=== PATIENT | female | born 1935 | race Caucasian/White ===

== ENCOUNTER 2023-04-08 18:24 | Inpatient (IN) ==
--- NOTE | 2023-04-08 18:44 | ED.PDOC ---
General ED Provider: Dr. CRYSTAL SORIANO MD Chief Complaint: Hypertension Stated Complaint: Headache 87-year-old female presents to the emergency department for evaluation of headache and elevated blood pressure. Patient states she went to bed last night feeling in her normal state of health. She woke up this morning with a mild headache. She states that she noticed a headache after she woke up, it did not wake her up. She states throughout the day it is gotten worse. She does have a history of high blood pressure. She has been taking her medication as prescribed. Denies feeling nauseated. States she feels dizzy from time to time but not any worse with this headache. No vision changes. Time Seen by Provider: 04/08/23 18:41 Mode of Arrival: Walk-In Information Source: Patient and Family Exam Limitations: Dementia Primary Care Provider: ERICA MICHAEL MD Nursing and Triage Documentation Reviewed and Agree: Yes Review of Systems Review Of Systems Constitutional: Reports No symptoms All Other Systems: Reviewed and Negative PFSH Family History Mother Lung cancer Social History Smoking and tobacco status: Never smoker Alcohol intake: never Substance use type: does not use Household members: none Housing: house Marital status: W / Lives independently: Yes Number of children: 5 Current occupational status: retired Current gender identity: female Seatbelt use: always Water heater temperature set < 120 degrees: Yes Working smoke detector in home: Yes Fire extinguisher in home: Yes Physical Exam Physical Exam Appearance: Reports Well-appearing Ill-appearing: None Pain Distress: Mild Eyes: Reports EOMI ENT: Reports Oropharynx normal Neck: Supple Respiratory: Reports Airway patent and Breath sounds clear Cardiovascular: Reports RRR and Pulses normal GI/: Reports Soft and Nontender Musculoskeletal: Reports Normal strength and ROM intact Skin: Reports Warm and Dry Neurological: Reports Cranial nerves intact, Alert and Oriented Psychiatric: Reports Affect appropriate Critical Care Note Critical Care Note Total Critical Care Time (mins): 30 Course Course 04/08/23 19:13 04/08/23 19:13 Orders, Labs, Meds: Lab Review 04/08/23 04/08/23 04/08/23 19:02 19:13 20:55 WBC 10.35 H RBC 4.90 Hgb 14.6 Hct 42.6 MCV 86.9 MCH 29.8 MCHC 34.3 RDW Coeff of [place] 12.7 Plt Count 248 Immature Gran % (Auto) 0.3 Neut % (Auto) 63.9 Lymph % (Auto) 24.6 [place] % (Auto) 7.2 Eos % (Auto) 3.6 Baso % (Auto) 0.4 Neut # (Auto) 6.6 Lymph # (Auto) 2.6 [place] # (Auto) 0.8 Eos # (Auto) 0.4 Baso # (Auto) 0.0 Immature Gran # (Auto) 0.0 Sodium 127.7 L Potassium 3.70 Chloride 93.4 L Carbon Dioxide 23.4 Anion Gap 14.60 BUN 7.9 Creatinine 0.43 L Estimated GFR (MDRD) 139.00 BUN/Creatinine Ratio 18.37 Glucose 216.3 H Calcium 9.65 Urine Color Yellow Urine Clarity Clear Urine pH 8.0 Ur Specific [place] 1.015 Urine Protein Negative Urine Glucose (UA) 2+ H Urine Ketones Trace H Urine Blood 2+ H Urine Nitrite Negative Urine Bilirubin Negative Urine Urobilinogen 0.2 Ur Leukocyte Esterase Trace H Urine Microscopic RBC 20-30 Urine Microscopic WBC 10-20 Ur Squamous Epith Cells 5-10 Ur Renal Epithelial Cell 0-2 Urine Bacteria Trace SARS CoV-2 RNA Rapid TOM Negative Orders Category Date Time Status ED IV/MEDIPORT/POWERPORT .ONCE EMERGENCY 04/08/23 19:38 Active BMP [BASIC METABOLIC PANEL] Stat LAB 04/08/23 19:13 Completed CBC W/ AUTO DIFF Stat LAB 04/08/23 19:13 Completed SARS COV-2 RNA RAPID TOM Stat LAB 04/08/23 19:02 Completed UA [URINALYSIS C & S IF INDICATED] Stat LAB 04/08/23 20:55 Completed URINE CULTURE Stat LAB 04/08/23 20:55 Received 0.9 % Sodium Chloride [Saline Flush] Meds 04/08/23 19:37 Active 1 syr IVF PRN PRN Acetaminophen [Tylenol] Meds 04/08/23 19:41 Discontinued 650 mg PO ONCE ONE Ibuprofen [Motrin] Meds 04/08/23 19:41 Discontinued 400 mg PO ONCE STA Lisinopril [Zestril] Meds 04/08/23 21:32 Discontinued 10 mg PO ONCE ONE Metoprolol Tartrate [Lopressor] Meds 04/08/23 20:08 Discontinued 2.5 mg IVP ONCE ONE Nitrofurantoin Monohyd/M-Cryst [Macrobid] Meds 04/08/23 21:43 Discontinued 100 [address] PO ONCE ONE CT HEAD W/O CONTRAST Stat RADS 04/08/23 18:30 Completed Medications Generic Name Dose Route Start Last Admin Trade Name Freq PRN Reason Stop Dose Admin Sodium Chloride 1 syr 04/08/23 19:37 0.9% Sodium Chloride 10 Ml Disp.Syrin IVF PRN PRN To flush IV Discontinued Medications Generic Name Dose Route Start Last Admin Trade Name Freq PRN Reason Stop Dose Admin Acetaminophen 650 mg 04/08/23 19:41 04/08/23 20:02 Acetaminophen 325 Mg Tablet PO 04/08/23 19:42 650 mg ONCE ONE Administration Ibuprofen 400 mg 04/08/23 19:41 04/08/23 20:02 Ibuprofen 400 Mg Tablet PO 04/08/23 19:42 400 mg ONCE STA Administration Lisinopril 10 mg 04/08/23 21:32 04/08/23 21:38 Lisinopril 10 Mg Tablet PO 04/08/23 21:33 10 mg ONCE ONE Administration Metoprolol Tartrate 2.5 mg 04/08/23 20:08 04/08/23 20:59 Metoprolol Tartrate 5 Mg/5 Ml Vial IVP 04/08/23 20:09 2.5 mg ONCE ONE Administration Nitrofurantoin Macrocrystals 100 mg 04/08/23 21:43 Nitrofurantoin Monohyd/M-Cryst 100 Mg Capsule PO 04/08/23 21:44 ONCE ONE Patient with elevated blood pressure while in the emergency department. Patient was given a dose of 2.5 mg of Lopressor IV. No real improvement in her blood pressure. Patient reassessed and does not have any real change in her headache. She does have possible urinary tract infection. Remainder of her laboratory testing is unremarkable. Uncertain if her headache is causing her blood pressure, her blood pressure is causing her headache or if the urinary tract infection is contributing in someway. Patient given an oral dose of her blood pressure medication and an antibiotic. Discussed discharge home with outpatient management versus admission. Patient feels more comfortable with admission because her primary doctor does not hold appointments tomorrow and it is then the weekend. 9:47 PM Case discussed with patient's primary provider, Dr. Michael. He is comfortable with admission, would prefer hospitalist team to the admission. 9:49 PM Case discussed with hospitalist team. They will accept admission. Patient will be given her 8 PM medications including melatonin, temazepam, Eliquis, sotalol, metformin. She is also been given oral lisinopril in the emergency department. Vital Signs: Temp Pulse Resp BP Pulse Ox 04/08/23 21:31 76 16 178/80 H 94 L 04/08/23 21:23 76 16 176/78 H 94 L 04/08/23 21:15 70 16 179/81 H 95 04/08/23 21:08 78 16 182/81 H 94 L 04/08/23 21:00 74 16 187/87 H 95 04/08/23 20:30 76 16 181/84 H 97 04/08/23 20:05 80 16 184/81 H 97 04/08/23 19:28 72 16 170/73 H 96 04/08/23 18:34 98.1 F 72 16 191/76 H 97 Discharge Plan Discharge Patient Disposition: PLACED OBSERVATION Discharge Problem: Acute UTI Headache Qualifiers: Headache type: unspecified Hypertension Qualifiers: Hypertension type: unspecified Qualified Code(s): I10 - Essential (primary) hypertension Prescriptions: No Action aspirin 81 mg tablet,delayed release (DR/EC) 81 mg PO QDAY Qty: 90 1RF ibandronate 150 mg tablet 150 mg PO QMONTH Qty: 6 1RF metformin 500 mg tablet 500 mg PO BID Qty: 180 1RF Eliquis 5 mg tablet See Rx Instructions .ROUTE .COMPLEX Qty: 180 1RF Dose Instruction: Take 1 tablet by mouth twice daily Rx Instructions: Take 1 tablet by mouth twice daily fluticasone propionate [24 Hour Allergy Relief] 50 mcg/actuation spray,suspension 2 spray intranasal DAILY Rx Instructions: administer into each nostril polyethylene glycol 3350 17 gram powder in packet 17 g PO QPM atorvastatin 20 mg tablet 10 mg PO QDAY temazepam 15 mg capsule 15 mg PO QHS sotalol 80 mg tablet 80 mg PO BID Qty: 180 1RF furosemide [Lasix] 20 mg tablet 20 mg PO QAM Qty: 90 1RF amlodipine 10 mg tablet 10 mg PO QDAY Qty: 90 1RF lisinopril 2.5 mg tablet 2.5 mg PO QDAY Qty: 90 1RF Did you review [place] [employer] for ALL controlled substances?: Not Applicable ED Provider: CRYSTAL SORIANO Physician Progress Note: []
[2023-04-08 19:19] LABS: BASOPHILS % (AUTO) 0.4 % (0.0-3.0); EOSINOPHILS # (AUTO) 0.4 K/ul (0.0-0.7); EOSINOPHILS % (AUTO) 3.6 % (0.0-7.0); HEMATOCRIT 42.6 % (37.0-47.0); HEMOGLOBIN 14.6 g/dl (12.0-16.0); IMMATURE GRANULOCYTE % (AUTO) 0.3 % (0.0-5.0); LYMPHOCYTES # (AUTO) 2.6 K/uL (0.60-3.4); LYMPHOCYTES % (AUTO) 24.6 (10.0-50.0); MEAN CORPUSCULAR HEMOGLOBIN 29.8 pg (27.0-31.0); MEAN CORPUSCULAR HGB CONC 34.3 (31.8-35.4); MEAN CORPUSCULAR VOLUME 86.9 fl (81.0-99.0); MONOCYTES # (AUTO) 0.8 K/uL (0.4-2.0); MONOCYTES % (AUTO) 7.2 (0-10); NEUTROPHILS # (AUTO) 6.6 K/ul (2.0-6.9); NEUTROPHILS % (AUTO) 63.9 % (42.2-75.2); PLATELET COUNT 248 10^3/uL (140-440); RDW COEFFICIENT OF VARIATION 12.7 % (11.6-14.8); WHITE BLOOD COUNT 10.35 K/ul (4.6-10.2)
--- NOTE | 2023-04-08 19:19 | CT ---
EXAM: CT SCAN OF THE HEAD WITHOUT CONTRAST HISTORY: Headaches, hypertension TECHNIQUE: Imaging of the head was performed without contrast. 5 mm thin axial images and coronal a nd sagittal images were obtained. FINDINGS: The rodriguez-white interface appears normal. Low density changes are seen within the supraten torial white matter. No acute hemorrhages are seen. There is no mass effect. The basal cisterns ar e patent. The paranasal sinuses and mastoid air cells are clear. IMPRESSION: No acute intracranial abnormalities are seen. Chronic small vessel ischemic changes seen within the supratentorial white matter. All CT scans are performed using dose optimization techniques as appropriate to the performed exam an d include at least one of the following: Automated exposure control, adjustment of the mA and/or kV according t o size, and the use of iterative reconstruction technique.
[2023-04-08 19:33] LABS: BLOOD UREA NITROGEN 7.9 mg/dL (7-17); CALCIUM 9.65 mg/dL (8.4-10.2); CARBON DIOXIDE 23.4 mmol/L (22-30.0); CHLORIDE 93.4 mmol/L (98-107); CREATININE 0.43 mg/dL (0.60-1.30); GLUCOSE 216.3 mg/dL (74-106); POTASSIUM 3.7 mmol/L (3.5-5.1); SODIUM 127.7 mmol/L (134.5-145)
[2023-04-08] MEDS ORDERED: TYLENOL PO ONE (19:41)
[2023-04-08] MEDS ORDERED: MOTRIN PO STA (19:41)
[2023-04-08 19:54] LABS: SARS COV-2 RNA RAPID NAAT NEGATIVE (NEGATIVE)
[2023-04-08] MEDS ORDERED: LOPRESSOR IVP ONE (20:08)
[2023-04-08 21:07] LABS: BILIRUBIN,URINE Negative (NEGATIVE); CLARITY,URINE Clear (CLEAR); COLOR,URINE Yellow (YELLOW); GLUCOSE, URINE (UA) 2+ (NEGATIVE); KETONES,URINE Trace (NEGATIVE); LEUKOCYTE ESTERASE ,URINE Trace (NEGATIVE); NITRITE,URINE Negative (NEGATIVE); PROTEIN,URINE Negative (NEGATIVE); URINE, BLOOD 2+ (NEGATIVE); UROBILINOGEN,URINE 0.2 (0.2)
[2023-04-08 21:26] LABS: BACTERIA,URINE TRACE (NOT PRESENT); RENAL EPITHELIAL CELLS,URINE 0-2 (NOT PRESENT); URINE RBC, MICROSCOPIC 20-30 (0-2)
[2023-04-08] MEDS ORDERED: ZESTRIL PO ONE (21:32)
[2023-04-08] MEDS ORDERED: MACROBID PO ONE (21:43)
[2023-04-08] MEDS ORDERED: RESTORIL PO ONE (21:51)
[2023-04-08] MEDS ORDERED: ELIQUIS PO ONE (21:51)
[2023-04-08] MEDS ORDERED: BETAPACE PO ONE (21:51)
[2023-04-08] MEDS ORDERED: MELATONIN PO PRN (21:51)
[2023-04-08] MEDS ORDERED: GLUCOPHAGE PO ONE (21:52)
[2023-04-08 23:30] VITALS: BMI 23.6
[2023-04-09] MEDS ORDERED: HYDRALAZINE HCL IVP PRN (00:09)
[2023-04-09] MEDS ORDERED: TORADOL IVP STA (00:09)
[2023-04-09] MEDS: TYLENOL PO PRN (06:02)
[2023-04-09 06:36] LABS: BASOPHILS % (AUTO) 0.3 % (0.0-3.0); EOSINOPHILS # (AUTO) 0.1 K/ul (0.0-0.7); EOSINOPHILS % (AUTO) 1.3 % (0.0-7.0); HEMATOCRIT 39.1 % (37.0-47.0); HEMOGLOBIN 13.3 g/dl (12.0-16.0); IMMATURE GRANULOCYTE % (AUTO) 0.3 % (0.0-5.0); LYMPHOCYTES # (AUTO) 2.7 K/uL (0.60-3.4); MEAN CORPUSCULAR HEMOGLOBIN 29.8 pg (27.0-31.0); MEAN CORPUSCULAR VOLUME 87.7 fl (81.0-99.0); MONOCYTES # (AUTO) 0.8 K/uL (0.4-2.0); NEUTROPHILS # (AUTO) 6.4 K/ul (2.0-6.9); NEUTROPHILS % (AUTO) 63.1 % (42.2-75.2); PLATELET COUNT 226 10^3/uL (140-440); RDW COEFFICIENT OF VARIATION 12.5 % (11.6-14.8); RED BLOOD COUNT 4.46 10^6/ul (4.20-5.40); WHITE BLOOD COUNT 10.06 K/ul (4.6-10.2)
[2023-04-09 06:50] LABS: ALANINE AMINOTRANSFERASE 19.9 U/L (0-35); ALBUMIN 4.09 g/dL (3.5-5.0); ALKALINE PHOSPHATASE 71.9 U/L (53-141); ASPARTATE AMINO TRANSFERASE 27.2 U/L (14-36); BILIRUBIN,TOTAL 0.61 mg/dL (0.2-1.3); CALCIUM 9.19 mg/dL (8.4-10.2); CARBON DIOXIDE 19.1 mmol/L (22-30.0); CHLORIDE 94.4 mmol/L (98-107); CREATININE 0.35 mg/dL (0.60-1.30); GLUCOSE 109.9 mg/dL (74-106); POTASSIUM 3.51 mmol/L (3.5-5.1); SODIUM 124.7 mmol/L (134.5-145); TOTAL PROTEIN 6.87 g/dL (6.3-8.2)
[2023-04-09] MEDS ORDERED: SODIUM CHLORIDE 1,000 ML IV SCH (07:30)
[2023-04-09] MEDS: MACROBID PO SCH ×2 (08:38→20:46)
[2023-04-09] MEDS: NORVASC PO SCH (08:38)
[2023-04-09] MEDS: LIPITOR PO SCH (08:39)
[2023-04-09] MEDS: BETAPACE PO SCH (08:39)
[2023-04-09] MEDS ORDERED: ASPIRIN CHEWABLE PO SCH (09:00)
[2023-04-09] MEDS ORDERED: LASIX TAB PO SCH (09:00)
[2023-04-09] MEDS ORDERED: GLUCOPHAGE PO SCH (09:00)
[2023-04-09] MEDS ORDERED: ZESTRIL PO SCH ×2 (09:00→10:00)
[2023-04-09] MEDS ORDERED: MACROBID PO SCH (09:00)
[2023-04-09] MEDS ORDERED: TORADOL IVP PRN (09:37)
[2023-04-09] MEDS: ZESTRIL PO SCH ×2 (11:18→20:46)
[2023-04-09] MEDS: MICRO-K CAP PO SCH ×2 (11:18→17:16)
[2023-04-09] MEDS: POTASSIUM CHLORIDE 40 MEQ VIAL-ADDITIVE ONLY 30 MEQ in SODIUM CHLORIDE 1,000 ML IV SCH (11:19)
--- NOTE | 2023-04-09 11:33 | PCM ---
Date of Service Date Seen by Provider: 04/09/23 Time Seen by Provider: 09:00 Admit Day/Time Admission Date: 04/09/23 Admission Time: 12:00 Reason for Admission Chief Complaint: ACUTE UTI, HTN Hospital Provider Hospital Provider: ERICA CORONA MD, [facility] Primary Care Physician Primary Care Physician: ERICA CORONA MD History of Present Illness History of Present Illness: 87 yo female presented to the ER with headache and hypertension. Patient states that her headache started yesterday afternoon and persisted. Describes the pain as a throbbing. Tylenol and ibuprofen do not make it better. Has not had any recent changes in medication. No recent illness. Reports her BP is normally controlled and has not had any dosage changes. Patient was found to have low sodium in ER as well as UTI. She was started on macrobid and given her home BP medications that later improved her BP. Still has complaints of headache. Denies any fever, chills, N/V/D, chest pain, SOB, or abdominal pain. States she does have burning on urination occasionally, but not consistently. Case Discussed With Case Discussed With: Patient's case was discussed with the ER Physicians, Dr. 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 (ICD-10) Hypertension I10 - Essential (primary) hypertension (ICD-10) Family History Mother Lung cancer Social History Smoking and tobacco status: Never smoker Alcohol intake: never Substance use type: does not use Household members: none Housing: house Marital status: W / Lives independently: Yes Number of children: 5 Current occupational status: retired Current gender identity: female Seatbelt use: always Water heater temperature set < 120 degrees: Yes Working smoke detector in home: Yes Fire extinguisher in home: Yes Allergies Allergies Allergy/AdvReac Type Severity Reaction Status Date / Time namenda AdvReac Dizziness Uncoded 04/08/23 18:49 Current Medications Home Medications aspirin 81 mg tablet,delayed release 81 mg PO QDAY #90 tabs 12/21/22 [Rx Confirmed 04/08/23 Last Taken Unknown] ibandronate 150 mg tablet 150 mg PO QMONTH #6 tabs 12/21/22 [Rx Confirmed 04/08/23 Last Taken Unknown] metformin 500 mg tablet 500 mg PO BID #180 tabs 12/21/22 [Rx Confirmed 04/08/23 Last Taken Unknown] apixaban 5 mg tablet (Eliquis) See Rx Instructions .Route .COMPLEX #180 tabs 02/22/23 [Rx Confirmed 04/08/23 Last Taken Unknown] amlodipine 10 mg tablet 10 mg PO QDAY #90 tabs 03/03/23 [Rx Confirmed 04/08/23 Last Taken Unknown] furosemide 20 mg tablet (Lasix) 20 mg PO QAM #90 tabs 03/03/23 [Rx Confirmed 04/08/23 Last Taken Unknown] lisinopril 2.5 mg tablet 2.5 mg PO QDAY #90 tabs 03/03/23 [Rx Confirmed 04/08/23 Last Taken Unknown] sotalol 80 mg tablet 80 mg PO BID #180 tabs 03/03/23 [Rx Confirmed 04/08/23 Last Taken Unknown] atorvastatin 20 mg tablet 10 mg PO QDAY 04/08/23 [History Confirmed 04/08/23 Last Taken Unknown] fluticasone propionate 50 mcg/actuation nasal spray,suspension (24 Hour Allergy Relief) 2 spray intranasal DAILY 04/08/23 [History Confirmed 04/08/23 Last Taken Unknown] polyethylene glycol 3350 17 gram oral powder packet 17 g PO QPM 04/08/23 [History Confirmed 04/08/23 Last Taken Unknown] temazepam 15 mg capsule 15 mg PO QHS sleep 04/08/23 [History Confirmed 04/08/23 Last Taken Unknown] Home Acetaminophen (Acetaminophen 325 Mg Tablet) 650 mg PO Q4H PRN PRN Reason: Pain Last Admin: 04/09/23 06:02 Dose: 650 mg Amlodipine Besylate (Amlodipine Besylate 5 Mg Tablet) 10 mg PO QAM [facility] Last Admin: 04/09/23 08:38 Dose: 10 mg Aspirin (Aspirin 81 Mg Tab.Chew) 81 mg PO DAILYWM2 [place] Atorvastatin Calcium (Atorvastatin Calcium 10 Mg Tablet) 10 mg PO QAM [facility] Last Admin: 04/09/23 08:39 Dose: 10 mg Furosemide (Furosemide 20 Mg Tablet) 10 mg PO QDAC2 [facility] Hydralazine HCl (Hydralazine Hcl 20 Mg/Ml Sdv) 10 mg IVP Q6H PRN PRN Reason: Hypertension Last Admin: 04/09/23 00:47 Dose: 10 mg Potassium Chloride 30 meq/ (Sodium Chloride) 1,015 mls @ 75 mls/hr IV .[id number] [facility] Last Admin: 04/09/23 11:19 Dose: 75 mls/hr Ketorolac Tromethamine (Ketorolac Tromethamine 30 Mg/Ml Vial) 30 mg IVP Q6H PRN PRN Reason: headache Stop: 04/13/23 09:37 Last Admin: 04/09/23 09:52 Dose: 30 mg Lisinopril (Lisinopril 10 Mg Tablet) 10 mg PO BID [facility] Last Admin: 04/09/23 11:18 Dose: 10 mg Melatonin (Melatonin 3 Mg Tablet) 3 mg PO BEDTIME PRN PRN Reason: Insomnia Metformin HCl (Metformin Hcl 500 Mg Tablet) 500 mg PO DAILYWM2 [facility] Nitrofurantoin Macrocrystals (Nitrofurantoin Monohyd/M-Cryst 100 Mg Capsule) 100 mg PO BID [facility] Stop: 04/12/23 08:59 Last Admin: 04/09/23 08:38 Dose: 100 mg Potassium Chloride (Potassium Chloride 10 Meq Capsule.Er) 10 meq PO BIDWM2 [facility] Last Admin: 04/09/23 11:18 Dose: 10 meq Sodium Chloride (0.9% Sodium Chloride 10 Ml Disp.Syrin) 1 syr IVF PRN PRN PRN Reason: To flush IV Last Admin: 04/09/23 06:00 Dose: 1 syr Sotalol HCl (Sotalol Hcl 80 Mg Tablet) 80 mg [place] Last Admin: 04/09/23 08:39 Dose: 80 mg Discontinued Medications Acetaminophen (Acetaminophen 325 Mg Tablet) 650 mg PO ONCE ONE Stop: 04/08/23 19:42 Last Admin: 04/08/23 20:02 Dose: 650 mg Apixaban (Apixaban 5 Mg Tab) 5 mg PO ONCE ONE Stop: 04/08/23 21:52 Last Admin: 04/08/23 22:12 Dose: 5 mg Aspirin (Aspirin 81 Mg Tab.Chew) 81 mg PO [facility] Last Admin: 04/09/23 08:38 Dose: 81 mg Furosemide (Furosemide 20 Mg Tablet) 10 mg [place] Last Admin: 04/09/23 08:39 Dose: 10 mg Sodium Chloride (Sodium Chloride) 1,000 mls @ 100 mls/hr IV .Q10H [facility] Last Infusion: 04/09/23 11:21 Dose: 0 mls/hr Ibuprofen (Ibuprofen 400 Mg Tablet) 400 mg PO ONCE STA Stop: 04/08/23 19:42 Last Admin: 04/08/23 20:02 Dose: 400 mg Ketorolac Tromethamine (Ketorolac Tromethamine 30 Mg/Ml Vial) 30 mg IVP ONCE STA Stop: 04/09/23 00:10 Last Admin: 04/09/23 00:47 Dose: 30 mg Lisinopril (Lisinopril 10 Mg Tablet) 10 mg PO ONCE ONE Stop: 04/08/23 21:33 Last Admin: 04/08/23 21:38 Dose: 10 mg Lisinopril (Lisinopril 5 Mg Tablet) 2.5 mg PO [facility] Last Admin: 04/09/23 08:39 Dose: 2.5 mg Lisinopril (Lisinopril 5 Mg Tablet) 5 mg PO DAILY [facility] Last Admin: 04/09/23 09:52 Dose: 5 mg Metformin HCl (Metformin Hcl 500 Mg Tablet) 500 mg PO ONCE ONE Stop: 04/08/23 21:53 Last Admin: 04/08/23 22:12 Dose: 500 mg Metformin HCl (Metformin Hcl 500 Mg Tablet) 500 mg PO [facility] Last Admin: 04/09/23 08:39 Dose: 500 mg Metoprolol Tartrate (Metoprolol Tartrate 5 Mg/5 Ml Vial) 2.5 mg IVP ONCE ONE Stop: 04/08/23 20:09 Last Admin: 04/08/23 20:59 Dose: 2.5 mg Nitrofurantoin Macrocrystals (Nitrofurantoin Monohyd/M-Cryst 100 Mg Capsule) 100 mg PO ONCE ONE Stop: 04/08/23 21:44 Last Admin: 04/08/23 22:12 Dose: 100 mg Nitrofurantoin Macrocrystals (Nitrofurantoin Monohyd/M-Cryst 100 Mg Capsule) 100 mg PO [facility] Stop: 04/12/23 08:59 Sotalol HCl (Sotalol Hcl 80 Mg Tablet) 80 mg PO ONCE ONE Stop: 04/08/23 21:52 Last Admin: 04/08/23 22:12 Dose: 80 mg Temazepam (Temazepam 15 Mg Capsule) 15 mg PO ONCE ONE Stop: 04/08/23 21:52 Last Admin: 04/08/23 22:12 Dose: 15 mg Review of Systems Constitutional: Reports No symptoms Head: Reports Normocephalic Eyes: Reports No symptoms Ears: Reports No symptoms Nose: Reports No symptoms Mouth: Reports No symptoms Throat: Reports No symptoms Cardiovascular: Reports No symptoms Respiratory: Reports No symptoms Gastrointestinal: Reports No symptoms Genitourinary: Reports No Symptoms Musculoskeletal: Reports No symptoms Endocrine: Reports No symptoms Hematology: Reports No symptoms Immunology: Reports No symptoms Neurological: Reports Headache Psychiatric: Reports No symptoms Physical examination Most Recent Vital Signs: Most Recent Vital Signs Temperature 97.5 F L 04/09/23 09:45 Temperature Source Tympanic 04/09/23 09:45 Temperature Source Infrared 04/08/23 18:34 Pulse Rate 72 04/09/23 09:45 Respiratory Rate 18 04/09/23 09:45 Blood Pressure 156/64 H 04/09/23 09:45 Blood Pressure Mean 94 04/09/23 09:45 Blood Pressure Right Arm 187/84 04/08/23 22:42 Blood Pressure Location Right Arm 04/09/23 09:45 Blood Pressure Position Supine 04/09/23 09:45 O2 Sat by Pulse Oximetry 94 L 04/09/23 09:45 Oxygen Delivery Method Room Air 04/09/23 10:46 Height 5 ft 1 in 04/08/23 22:42 Weight 125 lb 5 oz 04/08/23 22:42 Telemetry Type Remote Telemetry 04/09/23 07:00 Telemetry Monitoring Continues 04/09/23 07:00 Telemetry Heart Rate 63 04/09/23 07:00 EKG MD Interval 0.22 H 04/09/23 07:00 EKG QRS Interval 0.06 04/09/23 07:00 Telemetry Strip Reading A PACED WITH 1ST DEGREE AVB 04/09/23 07:00 Appearance: Positive No Apparent Distress and Alert and Oriented x3 Skin: Positive Warm and Good Turgor HEENT: Positive Normocephalic and PERRLA Neck: Positive Supple and Midline Trachea Chest/Lungs: Positive Symmetrical With Equal Breath Sounds, Clear to Au scultation Bilaterally and Good Air Movement all 4 Lung [place] Heart: Positive RRR and Pulses Normal GI/: Positive Soft, Nontender, Bowel Sounds Normal and No Distention Musculoskeletal: Positive Not Examined Extremities: Positive Intact Peripheral Pulses, Stable Joints Without Laxity and Good ROM in All Joints Neurological: Positive Sensation Intact, Motor intact, Reflexes Intact, Alert, Oriented and Muscle Strength 5/5 in Upper and Lower Extremities Bilaterally Labs This Visit Labs This Visit: Labs This Visit 04/08/23 04/08/23 04/08/23 19:02 19:13 20:55 WBC 10.35 H RBC 4.90 Hgb 14.6 Hct 42.6 MCV 86.9 MCH 29.8 MCHC 34.3 RDW Coeff of [place] 12.7 Plt Count 248 Immature Gran % (Auto) 0.3 Neut % (Auto) 63.9 Lymph % (Auto) 24.6 [place] % (Auto) 7.2 Eos % (Auto) 3.6 Baso % (Auto) 0.4 Neut # (Auto) 6.6 Lymph # (Auto) 2.6 [place] # (Auto) 0.8 Eos # (Auto) 0.4 Baso # (Auto) 0.0 Immature Gran # (Auto) 0.0 Sodium 127.7 L Potassium 3.70 Chloride 93.4 L Carbon Dioxide 23.4 Anion Gap 14.60 BUN 7.9 Creatinine 0.43 L Estimated GFR (MDRD) 139.00 BUN/Creatinine Ratio 18.37 Glucose 216.3 H Calcium 9.65 Total Bilirubin AST ALT Alkaline Phosphatase Total Protein Albumin Globulin Albumin/Globulin Ratio Urine Color Yellow Urine Clarity Clear Urine pH 8.0 Ur Specific [place] 1.015 Urine Protein Negative Urine Glucose (UA) 2+ H Urine Ketones Trace H Urine Blood 2+ H Urine Nitrite Negative Urine Bilirubin Negative Urine Urobilinogen 0.2 Ur Leukocyte Esterase Trace H Urine Microscopic RBC 20-30 Urine Microscopic WBC 10-20 Ur Squamous Epith Cells 5-10 Ur Renal Epithelial Cell 0-2 Urine Bacteria Trace SARS CoV-2 RNA Rapid TOM Negative 04/09/23 06:27 WBC 10.06 RBC 4.46 Hgb 13.3 Hct 39.1 MCV 87.7 MCH 29.8 MCHC 34.0 RDW Coeff of [place] 12.5 Plt Count 226 Immature Gran % (Auto) 0.3 Neut % (Auto) 63.1 Lymph % (Auto) 27.0 [place] % (Auto) 8.0 Eos % (Auto) 1.3 Baso % (Auto) 0.3 Neut # (Auto) 6.4 Lymph # (Auto) 2.7 [place] # (Auto) 0.8 Eos # (Auto) 0.1 Baso # (Auto) 0.0 Immature Gran # (Auto) 0.0 Sodium 124.7 L Potassium 3.51 Chloride 94.4 L Carbon Dioxide 19.1 L Anion Gap 14.71 BUN 8.0 Creatinine 0.35 L Estimated GFR (MDRD) 176.00 BUN/Creatinine Ratio 22.85 Glucose 109.9 H D Calcium 9.19 Total Bilirubin 0.61 AST 27.2 ALT 19.9 Alkaline Phosphatase 71.9 Total Protein 6.87 Albumin 4.09 Globulin 2.78 Albumin/Globulin Ratio 1.47 Urine Color Urine Clarity Urine pH Ur Specific [place] Urine Protein Urine Glucose (UA) Urine Ketones Urine Blood Urine Nitrite Urine Bilirubin Urine Urobilinogen Ur Leukocyte Esterase Urine Microscopic RBC Urine Microscopic WBC Ur Squamous Epith Cells Ur Renal Epithelial Cell Urine Bacteria SARS CoV-2 RNA Rapid TOM Microbiology This Visit 04/08/23 20:55 Urine,Random Urine Culture - Preliminary Imaging Imaging: EXAM: CT SCAN OF THE HEAD WITHOUT CONTRAST HISTORY: Headaches, hypertension TECHNIQUE: Imaging of the head was performed without contrast. 5 mm thin axial images and coronal and sagittal images were obtained. FINDINGS: The rodriguez-white interface appears normal. Low density changes are seen within the supratentorial white matter. No acute hemorrhages are seen. There is no mass effect. The basal cisterns are patent. The paranasal sinuses and mastoid air cells are clear. IMPRESSION: No acute intracranial abnormalities are seen. Chronic small vessel ischemic changes seen within the supratentorial white matter. Review Statement Review Statement: I have independently reviewed and interpreted the labs/EKGs/imaging that were ordered by the ER provider. I have reviewed all outside records that are available currently in our EMR including imaging/notes/labs from previous visits. Plan Plan: 1. Acute Hyponatremia - started on NS@100mL/hr, checking osmolalities 2. UTI - urine culture showing growth of gram negative rods, started on macrobid BID 3. Hypertension - uncontrolled, hydralazine ordered prn, increased lisinopril dose to 5 mg, continued all other BP medications will adjust as needed 4. Headache - likely related to high BP, toradol ordered prn, see above for BP management DVT Prophylaxis: Eliquis Dr. Modesta Corona assumed care of this patient at approximately 10:15 am. Time Spent: Greater than 80 minutes spent with patient, 50% of the time spent with this patient was devoted to counseling and coordination of care. [facility] minutes spent discussing advance care planning. Disposition: Admit to: Med/Surg Observation Discussed Plan of Care with Dr. Danny Corona. Medications Medication Orders: Medications Ordered Category Date Time Status 0.9 % Sodium Chloride [Saline Flush] Meds 04/08/23 19:37 Active 1 syr IVF PRN PRN Acetaminophen [Tylenol] Meds 04/09/23 05:50 Active 650 mg PO Q4H PRN Amlodipine Besylate [Norvasc] Meds 04/09/23 09:00 Active 10 mg PO QAM Aspirin [Aspirin Chewable] Meds 04/10/23 07:30 Active 81 mg PO DAILYWM2 Atorvastatin Calcium [Lipitor] Meds 04/09/23 09:00 Active 10 mg PO QAM Furosemide [Lasix Tab] Meds 04/10/23 06:00 Active 10 mg PO QDAC2 Hydralazine HCl Meds 04/09/23 00:09 Active 10 mg IVP Q6H PRN Ketorolac Tromethamine [Toradol] Meds 04/09/23 09:37 Active 30 mg IVP Q6H PRN Lisinopril [Zestril] Meds 04/09/23 10:45 Active 10 mg PO BID Melatonin Meds 04/08/23 21:51 Active 3 mg PO BEDTIME PRN Metformin HCl [Glucophage] Meds 04/10/23 07:30 Active 500 mg PO DAILYWM2 Nitrofurantoin Monohyd/M-Cryst [Macrobid] Meds 04/09/23 09:00 Active 100 mg PO BID Potassium Chloride [Micro-K Cap] Meds 04/09/23 11:00 Active 10 meq PO BIDWM2 Sodium Chloride 0.9% [Sodium Chloride] 1,000 ml Meds 04/09/23 11:00 Active Potassium Chloride Additive [Potassium Chloride 40 Meq Vial-Additive Only] 30 meq IV 75 mls/hr Sodium Chloride 0.9% [Sodium Chloride] 1,000 ml Meds 04/09/23 07:30 Stop Req IV 100 mls/hr Sotalol HCl [Betapace] Meds 04/09/23 09:00 Active 80 mg PO QAM
--- NOTE | 2023-04-09 14:00 | RS.PTINEVL ---
Subjective Patient information Date of Evaluation: 04/09/23 Date of Arrival on Unit: 04/08/23 Admitted From:: Emergency Dept Diagnosis: HTN Usual Living Arrangement: Alone Medical History: Dementia and Diabetes Medical History Comments:: osteoporosis,afib Surgical History: Hysterectomy Surgical History Comments:: thyroid surgery, pacemaker Medications: see chart Subjective Information/ Patient Comments:: pt states that her headache is finally gone. Reports she is tired from not getting much sleep last night. 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 Family helps when needed. Current Level of Function: Partially Dependent Current Equipment Used at Home: Rolling walker Interventions Objective Patient Orientation: Person, Place and Situation Current Interventions: IV's and Telemetry Observation: pt is NEZ PERCE. Increased thoracic kyphosis Range of Motion ROM Right Upper Extremity AROM: WFL's Left Upper Extremity AROM: WFL's Right Lower Extremity AROM: WFL's Left Lower Extremity AROM: WFL's Muscle Strength Muscle Strength Right Upper Extremity: Mild Weakness (grossly 4/5 ) Left Upper Extremity: Mild Weakness (grossly 4/5 ) Right Lower Extremity: Mild Weakness (hip flex 4-/5, knee flex/ext 4/5, ankle DF/PF 4/5) Left Lower Extremity: Mild Weakness (hip flex 4-/5, knee flex/ext 4/5, ankle DF/PF 4/5) Sensation Sensation Right Upper Extremity: Intact/Normal Left Upper Extremity: Intact/Normal Right Lower Extremity: Intact/Normal Left Lower Extremity: Intact/Normal Palpation Palpation Findings: None/Normal Balance Sitting Balance and Reactions Static Sitting Balance: Good Dynamic Sitting Balance: Good Standing Balance and Reactions Static Standing Balance: Fair Dynamic Standing Balance: Poor Standing Equilibrium Reactions: Delayed Left and Delayed Right Standing Protective Reactions: Delayed Left and Delayed Right Functional Mobility Bed Mobility Rolling R/L: Independent (with bedrails ) Supine to Sit: CGA Sit to Supine: CGA Transfers Sit to Stand: CGA Stand to Sit: CGA Safety Awareness Safety Awareness: Fair AILEEN INDEX SCORE: n/a Ambulation Ambulation Assistive Device Used: Rolling Walker Orthotic/Prosthetic Device: No Distance: 115ft Assistance needed with Ambulation: CGA Gait Deviations: Narrow Based gait, Forward posture and Short stride Factors Affecting Ambulation: Decreased Balance, Weakness, Decreased Safety and Limited Endurance Treatment time Time with patient Length of Evaluation: 21 Total treatment time: 24 Patient Education Education Patient Education: Activity Modification and Education of Plan of Care Teaching Recipient: Patient Teaching Methods: Discussion Comments: discussion regarding POC and home safety Assessment Assessment Problem List:: Decreased level of function, Requires training/education, Decreased safety/Risk of falls and Weakness Rehab Potential: Good Further Therapy Indicated?: Yes Candidate for Swing Bed for Therapy Services?: Feel pt may not be a candidate for swing bed due to higher functional level. Evaluation Complexity: HISTORY: Medium, EXAM OF BODY SYSTEMS: Medium, CLINICAL PRESENTATION: Medium and CLINICAL DECISION MAKING: Medium Patient's Goal(s): to be able to go home on my own. Short Term Goals GOAL #1: pt demonstrate rolling and scooting in bed independently. Goal to be met by: 04/12/23 GOAL #2: Transfer sup to/from sit SBA Goal to be met by: 04/12/23 GOAL #3: Transfer sit to/from stand SBA Goal to be met by: 04/12/23 GOAL #4: pt amb with rwx 140ft with CGA to SBA no LOB Goal to be met by: 04/12/23 GOAL #5: Improve BLE strength 4 to 4+/5 Goal to be met by: 04/12/23 Drug Abuse Technician Goals GOAL #1: Transfer sup to/from sit to/from stand independently. Goal to be met by: 04/15/23 GOAL #2: pt amb functional household distances SBA Goal to be met by: 04/15/23 GOAL #3: Improve dyn stand balance fair+ Goal to be met by: 04/15/23 Plan Plan of Care: Therapeutic EX, Neuromuscular Re-Educ and Therapeutic Activity Other:: gait training Frequency of Treatment: 1-2 X day, as tolerated Duration of Treatment: 1 Week Anticipated Discharge Destination: Home Treatment Diagnosis (ICD 10 Codes): impaired balance R 26.81 weakness M62.81 gait difficulty R 26.2 Has the Physician been added for Co-signature?: Yes
[2023-04-09] MEDS ORDERED: DECADRON IM STA (16:50)
[2023-04-10] MEDS ORDERED: POTASSIUM CHLORIDE 40 MEQ VIAL-ADDITIVE ONLY IV ONE (00:55)
[2023-04-10] MEDS: POTASSIUM CHLORIDE 40 MEQ VIAL-ADDITIVE ONLY 30 MEQ in SODIUM CHLORIDE 1,000 ML IV SCH (00:57)
[2023-04-10] MEDS: LASIX TAB PO SCH (05:31)
[2023-04-10 05:55] LABS: BASOPHILS % (AUTO) 0.1 % (0.0-3.0); HEMATOCRIT 38.8 % (37.0-47.0); HEMOGLOBIN 13.5 g/dl (12.0-16.0); IMMATURE GRANULOCYTE # (AUTO) 0.1 (0.0-1.0); IMMATURE GRANULOCYTE % (AUTO) 0.7 % (0.0-5.0); LYMPHOCYTES # (AUTO) 1.6 K/uL (0.60-3.4); LYMPHOCYTES % (AUTO) 20.5 (10.0-50.0); MEAN CORPUSCULAR HEMOGLOBIN 30.3 pg (27.0-31.0); MEAN CORPUSCULAR HGB CONC 34.8 (31.8-35.4); MONOCYTES # (AUTO) 0.4 K/uL (0.4-2.0); MONOCYTES % (AUTO) 5.7 (0-10); NEUTROPHILS # (AUTO) 5.6 K/ul (2.0-6.9); PLATELET COUNT 227 10^3/uL (140-440); RDW COEFFICIENT OF VARIATION 12.8 % (11.6-14.8); RED BLOOD COUNT 4.46 10^6/ul (4.20-5.40); WHITE BLOOD COUNT 7.66 K/ul (4.6-10.2)
[2023-04-10 06:10] LABS: ALANINE AMINOTRANSFERASE 18.5 U/L (0-35); ALBUMIN 4.12 g/dL (3.5-5.0); ASPARTATE AMINO TRANSFERASE 24.1 U/L (14-36); BILIRUBIN,TOTAL 0.67 mg/dL (0.2-1.3); BLOOD UREA NITROGEN 9.7 mg/dL (7-17); CALCIUM 9.05 mg/dL (8.4-10.2); CARBON DIOXIDE 18.6 mmol/L (22-30.0); CHLORIDE 99.4 mmol/L (98-107); CREATININE 0.42 mg/dL (0.60-1.30); GLUCOSE 151.9 mg/dL (74-106); POTASSIUM 4.47 mmol/L (3.5-5.1); SODIUM 127.4 mmol/L (134.5-145)
[2023-04-10] MEDS: BETAPACE PO SCH (08:08)
[2023-04-10] MEDS: MACROBID PO SCH ×2 (08:08→20:05)
[2023-04-10] MEDS: GLUCOPHAGE PO SCH (08:08)
[2023-04-10] MEDS: ASPIRIN CHEWABLE PO SCH (08:08)
[2023-04-10] MEDS: NORVASC PO SCH (08:08)
[2023-04-10] MEDS: LIPITOR PO SCH (08:08)
[2023-04-10] MEDS: ZESTRIL PO SCH ×2 (08:09→20:05)
[2023-04-10] MEDS: MICRO-K CAP PO SCH ×2 (08:09→17:32)
[2023-04-10] MEDS: SODIUM CHLORIDE 1,000 ML IV SCH (12:51)
[2023-04-11] MEDS: RESTORIL PO SCH ×2 (01:04→20:21)
[2023-04-11] MEDS: LASIX TAB PO SCH (05:15)
[2023-04-11] MEDS: TYLENOL PO PRN ×2 (05:15→16:56)
[2023-04-11 05:33] LABS: BASOPHILS % (AUTO) 0.2 % (0.0-3.0); EOSINOPHILS # (AUTO) 0.2 K/ul (0.0-0.7); EOSINOPHILS % (AUTO) 1.5 % (0.0-7.0); HEMATOCRIT 37.3 % (37.0-47.0); HEMOGLOBIN 12.5 g/dl (12.0-16.0); IMMATURE GRANULOCYTE # (AUTO) 0.1 (0.0-1.0); IMMATURE GRANULOCYTE % (AUTO) 0.5 % (0.0-5.0); LYMPHOCYTES % (AUTO) 17.3 (10.0-50.0); MEAN CORPUSCULAR HEMOGLOBIN 30.4 pg (27.0-31.0); MEAN CORPUSCULAR HGB CONC 33.5 (31.8-35.4); MEAN CORPUSCULAR VOLUME 90.8 fl (81.0-99.0); MONOCYTES # (AUTO) 1.5 K/uL (0.4-2.0); MONOCYTES % (AUTO) 12.9 (0-10); NEUTROPHILS # (AUTO) 7.6 K/ul (2.0-6.9); NEUTROPHILS % (AUTO) 67.6 % (42.2-75.2); PLATELET COUNT 193 10^3/uL (140-440); RDW COEFFICIENT OF VARIATION 13.2 % (11.6-14.8); RED BLOOD COUNT 4.11 10^6/ul (4.20-5.40); WHITE BLOOD COUNT 11.25 K/ul (4.6-10.2)
[2023-04-11 05:44] LABS: ALANINE AMINOTRANSFERASE 16.5 U/L (0-35); ALBUMIN 3.74 g/dL (3.5-5.0); ALKALINE PHOSPHATASE 65.7 U/L (53-141); ASPARTATE AMINO TRANSFERASE 22.2 U/L (14-36); BILIRUBIN,TOTAL 0.68 mg/dL (0.2-1.3); BLOOD UREA NITROGEN 9.4 mg/dL (7-17); CALCIUM 8.45 mg/dL (8.4-10.2); CARBON DIOXIDE 19.7 mmol/L (22-30.0); CREATININE 0.38 mg/dL (0.60-1.30); GLUCOSE 145.9 mg/dL (74-106); POTASSIUM 3.76 mmol/L (3.5-5.1); TOTAL PROTEIN 6.36 g/dL (6.3-8.2)
[2023-04-11] MEDS: SODIUM CHLORIDE 1,000 ML IV SCH (08:18)
[2023-04-11] MEDS: GLUCOPHAGE PO SCH (08:19)
[2023-04-11] MEDS: NORVASC PO SCH (08:19)
[2023-04-11] MEDS: BETAPACE PO SCH (08:19)
[2023-04-11] MEDS: ASPIRIN CHEWABLE PO SCH (08:19)
[2023-04-11] MEDS: ZESTRIL PO SCH ×2 (08:19→20:22)
[2023-04-11] MEDS: MACROBID PO SCH ×2 (08:19→20:22)
[2023-04-11] MEDS: MICRO-K CAP PO SCH ×2 (08:19→17:42)
[2023-04-11] MEDS: LIPITOR PO SCH (08:20)
[2023-04-11 21:13] VITALS: RESP 17
[2023-04-12] MEDS: LASIX TAB PO SCH (05:11)
[2023-04-12] MEDS: TYLENOL PO PRN (05:11)
[2023-04-12 05:56] VITALS: BP 139/74; PULSE 69; TEMP 97.3
[2023-04-12] MEDS: BETAPACE PO SCH (08:39)
[2023-04-12] MEDS: ASPIRIN CHEWABLE PO SCH (08:39)
[2023-04-12] MEDS: NORVASC PO SCH (08:39)
[2023-04-12] MEDS: GLUCOPHAGE PO SCH (08:39)
[2023-04-12] MEDS: LIPITOR PO SCH (08:39)
[2023-04-12] MEDS: ZESTRIL PO SCH (08:39)
[2023-04-12] MEDS: MICRO-K CAP PO SCH (08:39)
--- NOTE | 2023-04-12 11:33 | HP ---
DATE OF SERVICE: 04/09/23 REASON FOR HOSPITALIZATION: Acute UTI, confusion, hypertension uncontrolled, atrial fibrillation HISTORY OF PRESENT ILLNESS: 87 year old white female was brought to the emergency room with headache and hypertension. The patient's headache was mild. Blood pressure was taken at home and was more than 180. On further examination labs test in ER the patient had sodium of 127, glucose 216 and blood pressure 178/80, pulse 76, oxyimetry of 94%. On further questioning her daughter says that the patient has been confused. The patient's U/A done in the emergency room was abnormal with 2+ blood, trace leukocyte esterase. The patient's urine is growing gram negative rods. PAST MEDICAL HISTORY/PAST SURGICAL HISTORY: Anemia B12 deficiency Osteoporosis Kyphosis Dyslipidemia Hypertension Diabetes Mellitus type II Insomnia Pacemaker Atrial fibrillation, the patient is on anticoagulation REVIEW OF SYSTEMS: CONSTITUTIONAL: No night sweats. Weakness, Fatigue. No fever or chills. HEENT: Eyes: No visual changes. No eye pain. No eye discharge. ENT: No runny nose. No epistaxis. No sinus pain. No sore throat. No odynophagia. No ear pain. No congestion. RESPIRATORY: No cough, no congestion. No hemoptysis. No shortness of breath. CARDIOVASCULAR: No angina symptoms. No CHF symptoms. No atypical chest pain for CAD. No palpitations. No PND. No orthopnea. GASTROINTESTINAL: No abdominal pain. No nausea or vomiting. No diarrhea or constipation. No hematemesis. No hematochezia. Loss of appetite. GENITOURINARY: No urgency. No frequency. No dysuria. No hematuria. No obstructive symptoms. No discharge. No pain. No significant abnormal bleeding. MUSCULOSKELETAL: No musculoskeletal pain. No joint swelling. No arthritis. NEUROLOGICAL: No headache. No neck pain. No syncope. No seizures. No dizziness. Confusion PSYCHIATRIC: Not anxious. No depression. No suicidal thoughts. No homicidal thoughts. SKIN: No rash. No lesions. No wounds. ENDOCRINE: No unexplained weight loss. No weight gain. HEMATOLOGIC/LYMPHATIC: No anemia. No purpura. No petechiae. No prolonged or excessive bleeding. No palpable lymph nodes. PERSONAL/FAMILY/SOCIAL HISTORY: The patient is a , lives with the help of daughter. Nonsmoker. No alcohol abuse. Able to do all activity of daily living. She reads lots of books. MEDICATIONS: Aspirin Metformin Apixaban Amlodipine Furosemide Lisinopril Sotalol Atorvastatin Temazepam Polyethylene glycol PHYSICAL EXAMINATION: GENERAL: The patient looks somewhat dry, skin turgor acceptable. VITAL SIGNS: Temperature 97.5, pulse 72, respiratory rate 18, blood pressure 156/64 and pulse ox 94% on room air. HEENT: Head normocephalic, atraumatic. Eyes: Extraocular muscles are intact. Pupils are equal, round and reactive to light and accommodation. Ears: No lesions. Nose appeared normal. Throat: No exudate or erythema. Looks somewhat pale. NECK: Supple. No JVD, no carotid bruit. No lymphadenopathy or thyromegaly. LUNGS: Decreased breath sounds but clear to auscultation. Percussion note normal. Chest symmetrical. HEART: S1, S2, no S3. No murmur. No cyanosis or clubbing. No ascites. Pulses: Dorsalis pedis and posterior tibial pulses +1 bilaterally. ABDOMEN: Soft. Nontender. Bowel sounds active. No CVA tenderness. No mass felt. EXTREMITIES: No edema. Full range of motion of all extremities, equal. NEUROLOGIC: No focal deficit. Cranial nerves II through XII are grossly intact. No headache, no double vision or headache. SKIN: Not dry. Intact. Turgor - normal. LYMPHATIC: No palpable lymph nodes/no lymphedema. MUSCULOSKELETAL: Normal joints with no swelling. Muscle tone is normal. ASSESSMENT: 1. Abnormal U/A with UTI gram negative rods growing from the cultures. 2. Confusion 3. Dehydration likely from UTI 4. Hypertension, labile uncontrolled 5. Atrial fibrillation 6. Pacemaker 7. History of diabetes mellitus 8. Hypertension 9. Dyslipidemia PLAN: 1. IV fluid 1000 CC normal saline with 20meq KCL at 75cc per hour 2. Telemetry 3. Continue Macrobid 4. Holter Monitor 5. CBC and CMP 6. Continue to encourage the patient to eat 7. Continue all the rest of the medication as before 8. Increase to 10mg twice a day and give 10mg extra now 9. T4 TSH CONDITION: OTHERWISE STABLE TIME SPENT: More than 75 minutes. MTDD
--- NOTE | 2023-04-12 11:51 | PN ---
DATE OF SERVICE: 04/10/23 SUBJECTIVE: The patient was seen in this morning. The patient is feeling a lot better. She says that for the first time she has felt hungry and had breakfast to eat. REVIEW OF SYSTEMS: CONSTITUTIONAL: No night sweats. No fatigue, malaise, lethargy. No fever or chills. HEENT: Eyes: No visual changes. No eye pain. No eye discharge. ENT: No runny nose. No epistaxis. No sinus pain. No sore throat. No odynophagia. No congestion. RESPIRATORY: No cough, no congestion. No hemoptysis. Shortness of breath more so lately. . CARDIOVASCULAR: No angina symptoms. No CHF symptoms. No atypical chest pain for CAD. No palpitations. No PND. No orthopnea. GASTROINTESTINAL: No abdominal pain. No nausea or vomiting. No diarrhea or constipation. No hematemesis. No hematochezia. GENITOURINARY: No urgency. No frequency. No dysuria. No hematuria. No obstructive symptoms. No discharge. No pain. No significant abnormal bleeding. MUSCULOSKELETAL: No musculoskeletal pain; no joint swelling. NEUROLOGICAL: No headache. No neck pain. No syncope. No seizures. No dizziness. PSYCHIATRIC: Not anxious. No depression. No suicidal thoughts. No homicidal thoughts. SKIN: No rash. No lesions. No wounds. ENDOCRINE: No unexplained weight loss. No weight gain. HEMATOLOGIC/LYMPHATIC: No anemia. No purpura. No petechiae. No prolonged or excessive bleeding. No palpable lymph nodes. PHYSICAL EXAMINATION: GENERAL: The patient is oriented to time, place and person. VITAL SIGNS: Temperature 97, pulse 74, respiratory rate 20, blood pressure 130/60, pulse ox 97% on room air. HEENT: Head normocephalic, atraumatic. Looks somewhat pale. Eyes: Extraocular muscles are intact. Pupils are equal, round and reactive to light and accommodation. Ears: No lesions. Nose appeared normal. Throat: No exudate or erythema. NECK: Supple. No JVD, no carotid bruit. No lymphadenopathy or thyromegaly. LUNGS: Clear to auscultation. Percussion note normal. Chest symmetrical. HEART: S1, S2, no S3. No murmurs. No cyanosis or clubbing. No ascites. Pulses: Dorsalis pedis and posterior tibial pulses +1 to +2 bilaterally. ABDOMEN: Soft. Nontender. Bowel sounds active. No CVA tenderness. No mass felt. EXTREMITIES: No edema. Full range of motion of all extremities, equal. NEUROLOGIC: No focal deficit. Cranial nerves II through XII are grossly intact. No headache. No double vision. SKIN: Not dry. Intact. Turgor - normal. LYMPHATIC: No palpable lymph nodes/no lymphedema. MUSCULOSKELETAL: Normal joints with no swelling. Muscle tone is normal. LABS: Hgb 13.5, hct 38, WBC 7,600 normal differential, creatinine 0.4, BUN 9, potassium 4.4 ASSESSMENT: 1. Hypertension, seems to be controlled 2. UTI seems to be under control 3. Hyponatremia, seems to be resolving. 4. The patient's confusion seems to be subsiding. PLAN: 1. Continue slow IV fluids 2. Watch for fluid overload 3. Echo to evaluate LV function 4. Holter monitor seems to be capturing and functioning well 5. Telemetry strips examined. CONDITION: Stable. TIME SPENT: More than 35 minutes. Plan and coordination of the patient's care discussed in the presence of nurse. CARMEN
[2023-04-12] MEDS ORDERED: MACROBID PO ONE (12:07)
--- NOTE | 2023-04-13 07:47 | ECHO2D ---
Date of Exam: 04/11/2023 Ordering Physician: DR. MICHAEL Room #: 119 Reason for Echo: HYPERTENSION, SHORTNESS OF BREATH, DYSLIPIDEMIA, DIABETES MELLITUS TYPE 2, PACEMAKER, ATRIAL FIBRILLATION M-Mode Normal Adult Results LV Dimensions Normal Adult Results AoV Opening excursions >1.6 >1.6 LVEDD-base- 3.5-5.8 3.3 Ao root dimensions 2.0-3.7 2.9 LVESD-base- 3.1-4.6 L. Atrium dimensions 1.9-3.8 5.0 Post. Wall thickness 0.8-1.1 1.2 IV septum (thickness) 0.7-1.2 1.3 Post. Wall excursion 0.72-1.3 NORMAL Septal motion NORMAL Systolic motion R. Ventricular cavity 1.5-2.0 NORMAL LVEF 60% 70% Paradoxical septal wall motion NORMAL 2-D : CALCIFIC MITRAL VALVE ANNULUS.ENLARGED LEFT ATRIAL CAVITY. NORMAL LEFT VENTRICLE SIZE AND LEFT VENTRICULAR CONTRACTILITY. NO THROMBUS. NO EFFUSION.NORMAL VALVES. M-MODE: MV: CALCIFIC MITRAL VALVE ANNULUS AV: NORMAL TV: NORMAL PV: NORMAL CHAMBER SIZE: ENLARGED LEFT ATRIAL CAVITY WALL MOTION: NORMAL PERICARDIUM: NORMAL INTERPRETATION: 1. LEFT VENTRICULAR HYPERTROPHY WITH ENLARGED LEFT ATRIAL CAVITY. 2. CALCIFIC MITRAL VALVE ANNULUS. 3. NORMAL LEFT VENTRICLE SIZE AND LEFT VENTRICULAR CONTRACTILITY. 4. NORMAL VALVES. MTDD
[2023-04-13 08:14] LABS: SERUM OSMOLALITY 253 mOsmol/kg (280-301)
--- NOTE | 2023-04-13 13:59 | PN ---
DATE OF SERVICE: 04/11/23 SUBJECTIVE: 87 year old white female hospitalized with confusion, uncontrolled hypertension. The patient also has UTI with gram negative rods treated with Macrobid. The patient's condition has improved. She is feeling better for past 36 hours. The appetite has improved. Denies of any chest pain. REVIEW OF SYSTEMS: CONSTITUTIONAL: No night sweats. No fatigue, malaise, lethargy. No fever or chills. HEENT: Eyes: No visual changes. No eye pain. No eye discharge. ENT: No runny nose. No epistaxis. No sinus pain. No sore throat. No odynophagia. No congestion. RESPIRATORY: No cough, no congestion. No hemoptysis. No shortness of breath. CARDIOVASCULAR: No angina symptoms. No CHF symptoms. No atypical chest pain for CAD. No palpitations. No PND. No orthopnea. GASTROINTESTINAL: No abdominal pain. No nausea or vomiting. No diarrhea or constipation. No hematemesis. No hematochezia. GENITOURINARY: No urgency. No frequency. No dysuria. No hematuria. No obstructive symptoms. No discharge. No pain. No significant abnormal bleeding. MUSCULOSKELETAL: No musculoskeletal pain; no joint swelling. NEUROLOGICAL: No headache. No neck pain. No syncope. No seizures. No dizziness. PSYCHIATRIC: Not anxious. No depression. No suicidal thoughts. No homicidal thoughts. SKIN: No rash. No lesions. No wounds. ENDOCRINE: No unexplained weight loss. No weight gain. HEMATOLOGIC/LYMPHATIC: No anemia. No purpura. No petechiae. No prolonged or excessive bleeding. No palpable lymph nodes. PHYSICAL EXAMINATION: GENERAL: The patient is oriented to time, place and person. VITAL SIGNS: Temperature 98.6, pulse 84, respiratory rate 16, blood pressure 156/65 and pulse ox 98% on room air. HEENT: Head normocephalic, atraumatic. Eyes: Extraocular muscles are intact. Pupils are equal, round and reactive to light and accommodation. Ears: No lesions. Nose appeared normal. Throat: No exudate or erythema. NECK: Supple. No JVD, no carotid bruit. No lymphadenopathy or thyromegaly. LUNGS: Decreased breath sounds but clear to auscultation. Percussion note normal. Chest symmetrical. HEART: S1, S2, no S3. No murmurs. No cyanosis or clubbing. No ascites. Pulses: Dorsalis pedis and posterior tibial pulses +1 to +2 bilaterally. ABDOMEN: Soft. Nontender. Bowel sounds active. No CVA tenderness. No mass felt. EXTREMITIES: No edema. Full range of motion of all extremities, equal. NEUROLOGIC: No focal deficit. Cranial nerves II through XII are grossly intact. No headache. No double vision. SKIN: Not dry. Intact. Turgor - normal. LYMPHATIC: No palpable lymph nodes/no lymphedema. MUSCULOSKELETAL: Normal joints with no swelling. Muscle tone is normal. LABS: EKG atrial pace rhythm, underline rhythm likely atrial fibrillation. Hgb 12.5, hct 37, WBC 11,000 normal differential, creatinine 0.3, BUN 9, potassium 3.7. Hyponatremia with sodium of 128 ASSESSMENT: 1. UTI seems to be resolving. Mental status has improved. Appetite has improved. 2. Hypertension, seems to be under control, systolic is labile PLAN: 1. Continue antibiotics 2. Discontinue IV fluids 3. Echocardiogram was done with normal LV contractility, LVH noted. Enlarged LA cavity noted. No thyrombus or thrombi. 4. The patient will be discharged home tomorrow. CONDITION: Stable TIME SPENT: More than 35 minutes. Plan and coordination of the patient's care discussed in the presence of nurse. CARMEN
[2023-04-15 09:55] LABS: OSMOLALITY,URINE 482
--- NOTE | 2023-04-15 13:55 | PN ---
ADMISSION DAY: LEVEL 5 REST OF THEM: Intermediate FINAL DAY: D as in discharge MTDD
--- NOTE | 2023-04-15 13:55 | DS ---
DATE OF SERVICE: 04/12/23 FINAL DIAGNOSIS: 1. UTI, gram negative rods 2. Labile hypertension 3. Hypertensive urgency 4. Confusion, resolved 5. Electrolyte imbalance with some dehydration on admission 6. History of atrial fibrillation, pacemaker placement followed by Dr. Chapman 7. Diabetes Mellitus type II 8. Dyslipidemia DISCHARGE INSTRUCTIONS: Discharge home. Advised to continue the same medication as before. MEDICATIONS AT DISCHARGE: Metformin Apixaban Amlodipine Lasix Sotalol Atorvastatin Flonase Glycolide Glycol Temazepam NEW PRESCRIPTIONS: Lisinopril dose increased from 2.5 to 10mg twice a day Macrobid 100mg BID for three days after discharge. LABS: Hgb 12.5, hct 37, WBC 11,000 normal differential, creatinine 0.3, BUN 9, potassium 3.7 on 04/10/23 HOSPITAL COURSE: 87 year old white female brought to the emergency room on 04/08/23 with confusion, hypertensive urgency. The patient on further workup had electrolyte imbalance. She was confused according to the daughter. She also had UTI and was treated with Macrobid, IV fluids normal saline with Potassium supplements. Condition improved in 48 hours and she regained her appetite. Her appetite became normal, her mental status was normal at the time of discharge. Medication changes were explained to her. The patient did not have any fever, chills, no PND, no orthopnea. The echo showed normal LV contractility with LVH with enlarged LA cavity. The patient's telemetry showed pacemaker capturing and functioning very well. The patient is to be followed in 5 days. CONDITION: Stable TIME SPENT: 70 minutes MTDD
--- NOTE | 2023-04-15 13:59 | PN ---
DATE OF SERVICE: 04/12/23 SUBJECTIVE: The patient is up and about doing well, reading books. Appetite is normal. REVIEW OF SYSTEMS: CONSTITUTIONAL: No night sweats. No fatigue, malaise, lethargy. No fever or chills. HEENT: Eyes: No visual changes. No eye pain. No eye discharge. ENT: No runny nose. No epistaxis. No sinus pain. No sore throat. No odynophagia. No congestion. RESPIRATORY: No cough, no congestion. No hemoptysis. No shortness of breath. CARDIOVASCULAR: No angina symptoms. No CHF symptoms. No atypical chest pain for CAD. No palpitations. No PND. No orthopnea. GASTROINTESTINAL: No abdominal pain. No nausea or vomiting. No diarrhea or constipation. No hematemesis. No hematochezia. GENITOURINARY: No urgency. No frequency. No dysuria. No hematuria. No obstructive symptoms. No discharge. No pain. No significant abnormal bleeding. MUSCULOSKELETAL: No musculoskeletal pain; no joint swelling. NEUROLOGICAL: No headache. No neck pain. No syncope. No seizures. No dizziness. PSYCHIATRIC: Not anxious. No depression. No suicidal thoughts. No homicidal thoughts. SKIN: No rash. No lesions. No wounds. ENDOCRINE: No unexplained weight loss. No weight gain. HEMATOLOGIC/LYMPHATIC: No anemia. No purpura. No petechiae. No prolonged or excessive bleeding. No palpable lymph nodes. PHYSICAL EXAMINATION: HEENT: Head normocephalic, atraumatic. Eyes: Extraocular muscles are intact. Pupils are equal, round and reactive to light and accommodation. Ears: No lesions. Nose appeared normal. Throat: No exudate or erythema. NECK: Supple. No JVD, no carotid bruit. No lymphadenopathy or thyromegaly. LUNGS: Clear to auscultation. Percussion note normal. Chest symmetrical. HEART: S1, S2, no S3. No murmurs. No cyanosis or clubbing. No ascites. Pulses: Dorsalis pedis and posterior tibial pulses +1 to +2 bilaterally. ABDOMEN: Soft. Nontender. Bowel sounds active. No CVA tenderness. No mass felt. EXTREMITIES: No edema. Full range of motion of all extremities, equal. NEUROLOGIC: No focal deficit. Cranial nerves II through XII are grossly intact. No headache. No double vision. SKIN: Not dry. Intact. Turgor - better LYMPHATIC: No palpable lymph nodes/no lymphedema. MUSCULOSKELETAL: Normal joints with no swelling. Muscle tone is normal. ASSESSMENT: 1. UTI seems to be under control 2. Dehydration, resolved 3. Confusion, resolved. PLAN: 1. Discharge the patient home. 2. Lisinopril iIncreased to 10mg 3. Macrobid for three days for UTI CONDITION: Stable. TIME SPENT: More than 35 minutes. Plan and coordination of the patient's care discussed in the presence of nurse. CARMEN
== END 2023-04-12 12:47 | disposition home or self-care (01) | DRG 690 ==
LOC: MEDSURG B 18:24 → ED 18:24 → OBSVTOIN 22:20 → MEDSURG B 22:25 → ED 22:25
PROVIDERS: ADMIT Hospitalist; ATTEND Internal Medicine
DX: E11.9 Type 2 diabetes mellitus without complications; R41.82 Altered mental status, unspecified; E87.1 Hypo-osmolality and hyponatremia; I48.91 Unspecified atrial fibrillation; N39.0 Urinary tract infection, site not specified; B96.20 Unspecified Escherichia coli [E. coli] as the cause of diseases classified elsewhere; E87.8 Other disorders of electrolyte and fluid balance, not elsewhere classified; I10 Essential (primary) hypertension; E78.5 Hyperlipidemia, unspecified; E86.0 Dehydration; Z95.0 Presence of cardiac pacemaker; Z20.822 Contact with and (suspected) exposure to COVID-19

== ENCOUNTER 2024-08-02 08:04 | Inpatient (IN) ==
[2024-08-02] MEDS: DUONEB NEB STA (08:25)
--- NOTE | 2024-08-02 08:30 | ED.PDOC ---
General ED Provider: Dr. ADONAY JUNIOR DO Chief Complaint: Respiratory Complaint Stated Complaint: 89-year-old female presents to the ER by EMS reporting that she is felt unwell for the last 2 days and had trouble swallowing. She denies any fever, painful swallowing, chest pain or shortness of breath. She does report a cough over the last couple days as well. No known sick contacts. Denies any changes in medications or foods. Medical history reviewed in chart. Time Seen by Provider: 08/02/24 08:04 Information Source: Patient Primary Care Provider: ERICA MICHAEL MD Nursing and Triage Documentation Reviewed and Agree: Yes What is Opioid Naive?: *Opioid Naive implies the patient is not already taking opioids or not chronically receiving opioids on a daily basis. *PRN dosing is not "usually" associated with tolerance. *Patients are at higher risk of over-sedation and aspiration. What is Opioid Tolerant?: *Opioid Tolerance implies less than the expected response to an opioid. *Acquired tolerance is defined by the patient taking 60mg of oral morphine daily (or equianalgesic dose of another opioid) for 1 week or more. *Often associated with chronic pain. *May take more than usual dose to achieve desired pain control. Review of Systems Review Of Systems Constitutional: Reports No symptoms All Other Systems: Reviewed and Negative [facility] Medical History Diabetes E11.9 - Type 2 diabetes mellitus without complications (ICD-10) Pacemaker Z95.0 - Presence of cardiac pacemaker (ICD-10) Hypertension I10 - Essential (primary) hypertension (ICD-10) Family History Mother Lung cancer Social History Smoking and tobacco status: Never smoker Alcohol intake: never Substance use type: does not use Special jonathan needs: No Agree to transfusion: Yes Adopted: No Caregiver/support person: No Foster care: No Household members: none Housing: house Marital status: W / Lives independently: Yes Daycare: no daycare Number of children: 5 service: No skilled nursing: No Current occupational status: retired History of recent travel: No Do you think of yourself as: straight/heterosexual Current gender identity: female Seatbelt use: always Drives intoxicated or rides with intoxicated courtesy driver: No Water heater temperature set < 120 degrees: Yes Working smoke detector in home: Yes Fire extinguisher in home: Yes Female Reproductive History Menstrual Hx Hysterectomy: Yes Hx Tubal Ligation: No Physical Exam Physical Exam Appearance: Reports Well-appearing, No pain distress and Well-nourished Ill-appearing: Mild Eyes: Reports VASYL and EOMI ENT: Reports Nose normal and Oropharynx normal (Tongue is dry. Mildly edematous. No rash. Oropharynx clear. No erythema or exudate.) Respiratory: Reports Airway patent and Respirations nonlabored Cardiovascular: Reports Pulses normal and Irregular rhythm Musculoskeletal: Reports Normal strength and ROM intact Skin: Reports Warm, Dry and Normal color Neurological: Reports Sensation intact, Motor intact, Alert and Oriented Psychiatric: Reports Affect appropriate and Mood appropriate Interpretation EKG Interpretation EKG Interpretation By: ED Physician (Independent or potation) Time of EKG #1: 08:30 Rate: Normal Rhythm: Other (Paced, atrial fibrillation) Ectopy: None [place]: NL ST Segment: Normal Interpretation: Paced limits interpretation Re-Evaluation Re-Evaluation Additional Comments: 89-year-old female presents to the ER stating she is felt unwell with a cough and has trouble swallowing but no pain. She is afebrile nontoxic doubt systemic infection such as sepsis. Her mucous membranes are dry. Suspect that she has had some poor oral intake recently. Vital signs are stable. Doubt significant dehydration although clinically she does have signs of dehydration. Nonfocal neuroexam. Low suspicion for cardiopulmonary processes to include but not limited to ACS, UT, PE, pneumothorax, dissection or tamponade. Given her age, will obtain viral swabs and strep swab. Will give some lidocaine to try to soothe her oropharynx. Will consider laboratory workup to assess for signs of endorgan damage Exam is not consistent with angioedema, anaphylaxis or anaphylactoid reaction, parotiditis, deep space infections such as peritonsillar abscess or retropharyngeal abscess. 0930: Patient is remained hemodynamically stable. I reviewed her labs which of note she is COVID-positive. She also has an increase in her BUN to 24 where she usually lives between 10 and 15. Her creatinine is also elevated to 0.87 where historically it looks as though she lives at around 0.4-0.5. This would therefore be a 50% increase in her creatinine and with the concurrent increase with her BUN, I am concerned about a clinically significant dehydration even though these do not both lag on the abnormal labs, in comparison to historical labs, they are significant. Will begin gentle IV hydration. Discussed with her primary care who is aware and discussed with the hospitalist service who is gracious to accept. Primary diagnoses being dehydration, acute kidney injury and COVID Course Course 08/02/24 08:45 08/02/24 08:45 Orders, Labs, Meds: Orders Category Date Time Status EKG-(ED ONLY) Stat CARDIO 08/02/24 08:15 Ordered NEBULIZER TREATMENT Stat CARDIO 08/02/24 08:15 Ordered COVID [SARS COV-2 RNA RAPID TOM] Stat LAB 08/02/24 08:21 Ordered FLU A & B MOLECULAR [FLU A/B MOLECULAR] Stat LAB 08/02/24 08:21 Ordered RAPID STREP SCREEN [MOLECULAR GROUP A STREP] Stat LAB 08/02/24 08:21 Ordered Ipratropium/Albuterol Neb [Duoneb] Meds 08/02/24 08:14 Discontinued 3 ml NEB ONCE STA Lidocaine HCl [Lidocaine Viscous 2% 15 ml Ud] Meds 08/02/24 08:14 Discontinued 15 ml MUCOUSMEMB ONCE STA CHEST, 1V AP ONLY Stat RADS 08/02/24 08:15 Ordered Medications Discontinued Medications Generic Name Dose Route Start Last Admin Trade Name Freq PRN Reason Stop Dose Admin Albuterol/Ipratropium 3 ml 08/02/24 08:14 Ipratropium/Albuterol Vial.Neb NEB 08/02/24 08:15 ONCE STA Lidocaine HCl 15 ml 08/02/24 08:14 Lidocaine Viscous 15 Ml Cup MUCOUSMEMB 08/02/24 08:15 ONCE STA Vital Signs: Temp Pulse Resp BP Pulse Ox 08/02/24 08:06 98.0 F 78 20 135/69 100 Discharge Plan Discharge Patient Disposition: PLACED OBSERVATION Discharge Problem: ALFREDO (acute kidney injury), Acute dehydration, COVID Prescriptions: No Action ibandronate 150 mg tablet 150 mg PO MONTHLY Qty: 6 0RF metformin 500 mg tablet See Rx Instructions .ROUTE .COMPLEX Qty: 180 1RF Dose Instruction: TAKE ONE TABLET TWICE DAILY Rx Instructions: TAKE ONE TABLET TWICE DAILY potassium chloride 10 mEq tablet extended release 10 meq PO QDAY Qty: 30 3RF temazepam 15 mg capsule 15 mg PO QHS Qty: 30 2RF atorvastatin 20 mg tablet 20 mg PO DAILY Qty: 90 1RF aspirin 81 mg tablet,delayed release (DR/EC) 81 mg PO DAILY Qty: 90 1RF sotalol 80 mg tablet 80 mg PO 2XD Qty: 180 1RF amlodipine 10 mg tablet 10 mg PO DAILY Qty: 90 1RF Eliquis 5 mg tablet 5 mg PO 2XD Qty: 180 1RF atorvastatin 10 mg tablet 10 mg PO DAILY potassium chloride 10 mEq tablet,ER particles/crystals 10 meq PO DAILY lisinopril 10 mg tablet 10 mg PO DAILY furosemide 20 mg tablet 10 mg PO DAILY fluticasone propionate [24 Hour Allergy Relief] 50 mcg/actuation spray,suspension 2 spray intranasal DAILY Rx Instructions: administer into each nostril polyethylene glycol 3350 17 gram powder in packet 17 g PO QPM Did you review [place] [employer] for ALL controlled substances?: Not Applicable ED Provider: ADONAY JUNIOR Condition: Stable
[2024-08-02] MEDS: LIDOCAINE VISCOUS 2% 15 ML UD MUCOUSMEMB STA (08:38)
[2024-08-02 08:46] LABS: MOLECULAR FLU A NEGATIVE BY NAAT (NEGATIVE); MOLECULAR FLU B NEGATIVE BY NAAT (NEGATIVE)
[2024-08-02 08:56] LABS: BASOPHILS % (AUTO) 0.1 % (0.0-3.0); EOSINOPHILS % (AUTO) 0.4 % (0.0-7.0); HEMATOCRIT 38.4 % (37.0-47.0); HEMOGLOBIN 12.5 g/dl (12.0-16.0); IMMATURE GRANULOCYTE # (AUTO) 0.1 (0.0-1.0); IMMATURE GRANULOCYTE % (AUTO) 0.9 % (0.0-5.0); LYMPHOCYTES # (AUTO) 1.8 K/uL (0.60-3.4); LYMPHOCYTES % (AUTO) 22.7 (10.0-50.0); MEAN CORPUSCULAR HEMOGLOBIN 29.3 pg (27.0-31.0); MEAN CORPUSCULAR HGB CONC 32.6 (31.8-35.4); MEAN CORPUSCULAR VOLUME 90.1 fl (81.0-99.0); MONOCYTES # (AUTO) 0.5 K/uL (0.4-2.0); MONOCYTES % (AUTO) 6.4 (0-10); NEUTROPHILS # (AUTO) 5.6 K/ul (2.0-6.9); NEUTROPHILS % (AUTO) 69.5 % (42.2-75.2); PLATELET COUNT 262 10^3/uL (140-440); RDW COEFFICIENT OF VARIATION 13.7 % (11.6-14.8); RED BLOOD COUNT 4.26 10^6/ul (4.20-5.40); WHITE BLOOD COUNT 8.09 K/ul (4.6-10.2)
[2024-08-02 08:56] LABS: SARS COV-2 RNA RAPID NAAT POSITIVE (NEGATIVE)
[2024-08-02 09:07] LABS: ALANINE AMINOTRANSFERASE 15.3 U/L (0-35); ALBUMIN 3.9 g/dL (3.5-5.0); ALKALINE PHOSPHATASE 74.1 U/L (53-141); ASPARTATE AMINO TRANSFERASE 29.2 U/L (14-36); BILIRUBIN,TOTAL 0.76 mg/dL (0.2-1.3); BLOOD UREA NITROGEN 23.9 mg/dL (7-17); CALCIUM 9.23 mg/dL (8.4-10.2); CARBON DIOXIDE 16.8 mmol/L (22-30.0); CHLORIDE 104.1 mmol/L (98-107); CREATININE 0.87 mg/dL (0.60-1.30); GLUCOSE 133.9 mg/dL (74-106); POTASSIUM 4.63 mmol/L (3.5-5.1); SODIUM 136.9 mmol/L (134.5-145); TOTAL PROTEIN 6.59 g/dL (6.3-8.2)
--- NOTE | 2024-08-02 09:07 | DI ---
EXAM: CHEST, SINGLE VIEW HISTORY: Chest pain and shortness of breath COMPARISON: None. IMPRESSION: Cardiomediastinal countours appear within normal limits. Left-sided pacer device in [place] There is no focal pulmonary consolidation. No pleural effusion or pneumothorax. Mild bilatera l peribronchial thickening. Bronchiolitis not excluded.
[2024-08-02] MEDS ORDERED: TYLENOL PO PRN (09:53)
[2024-08-02] MEDS ORDERED: ZOFRAN SDV IVP PRN (09:53)
[2024-08-02] MEDS ORDERED: CHLORASEPTIC SPRAY MM PRN (09:55)
[2024-08-02] MEDS ORDERED: SODIUM CHLORIDE 1,000 ML IV SCH (10:00)
--- NOTE | 2024-08-02 10:01 | PCM ---
Date of Service Date Seen by Provider: 08/02/24 Time Seen by Provider: 10:00 Admit Day/Time Admission Date: 08/02/24 Admission Time: 09:33 Reason for Admission Chief Complaint: ALFREDO,DEHYDRATION,COVID+ Hospital Provider Hospital Provider: MANPREET NAVARRO PA-C, [facility] Primary Care Physician Primary Care Physician: ERICA MICHAEL MD History of Present Illness History of Present Illness: Patient is a 89 year old female with pmhx of hypertension, a fib on chronic anticoagulation, osteoporosis, hyperlipidemia, DMt2, pacemaker who presents for overall not feeling well. States she's had sore throat, fatigue, cough, and congestion for past 2 days. States her lower throat area hurts and it is difficult to swallow. Denies drooling or choking. Able to drink ok but states she's not been drinking much. In the ER she tested positive for covid. Labs unremarkable except bicarb of 16, elevated BUN, and mild ALFREDO compared to her baseline. She was admitted to [facility] for covid and ALFREDO. Discussed with patient option of remdesivir for treatment of covid. Paxlovid is not a great choice given her anticoagulation. Discussed risks and benefits. She opts to not get remdesivir. Case Discussed With Case Discussed With: Patient's case was discussed with the ER Physicians, Dr. Ruelas. [facility] Medical History Diabetes E11.9 - Type 2 diabetes mellitus without complications (ICD-10) Pacemaker Z95.0 - Presence of cardiac pacemaker (ICD-10) Hypertension I10 - Essential (primary) hypertension (ICD-10) Family History Mother Lung cancer Social History Smoking and tobacco status: Never smoker Alcohol intake: never Substance use type: does not use Special jonathan needs: No Agree to transfusion: Yes Adopted: No Caregiver/support person: No Foster care: No Household members: none Housing: house Marital status: W / Lives independently: Yes Daycare: no daycare Number of children: 5 service: No senior living: No Current occupational status: retired History of recent travel: No Do you think of yourself as: straight/heterosexual Current gender identity: female Seatbelt use: always Drives intoxicated or rides with intoxicated drivers license examiner: No Water heater temperature set < 120 degrees: Yes Working smoke detector in home: Yes Fire extinguisher in home: Yes Allergies Allergies Allergy/AdvReac Type Severity Reaction Status Date / Time memantine (From Namenda) AdvReac Verified 08/02/24 08:26 namenda AdvReac Dizziness Uncoded 08/02/24 08:26 Current Medications Home Medications Acetaminophen (Acetaminophen 325 Mg Tablet) 650 mg PO Q4H PRN PRN Reason: Mild Pain Albuterol/Ipratropium (Ipratropium/Albuterol Vial.Neb) 3 ml NEB RTQ6H PRN PRN Reason: Wheezing Amlodipine Besylate (Amlodipine Besylate 5 Mg Tablet) 10 mg PO DAILY [facility] Apixaban (Apixaban 5 Mg Tab) 5 mg PO 2XD [facility] Aspirin (Aspirin 81 Mg Tablet.Dr) 81 mg PO DAILY [facility] Atorvastatin Calcium (Atorvastatin Calcium 20 Mg Tablet) 20 mg PO DAILY [facility] Famotidine (Famotidine Inj 20 Mg/2 Ml Vial) 20 mg IVP Q12HR [facility] Fluticasone Propionate (Fluticasone Propionate 16 Gm Nasal [place]) 2 spray SONAM DAILY [facility] Lactated Ringer's (Lactated Ringers) 1,000 mls @ 75 mls/hr IV .[id number] [facility] Last Admin: 08/02/24 10:05 Dose: 75 mls/hr Lisinopril (Lisinopril 10 Mg Tablet) 10 mg PO DAILY [facility] Ondansetron HCl (Ondansetron Hcl/Pf 4 Mg/2 Ml Sdv) 4 mg IVP Q6H PRN PRN Reason: Nausea / Vomiting Pantoprazole Sodium (Pantoprazole Sodium 40 Mg Vial) 40 mg IVP DAILY [facility] Phenol/Menthol (Phenol 1 [place] Btl) 1 spray MM Q2H PRN PRN Reason: SORE THROAT Sotalol HCl (Sotalol Hcl 80 Mg Tablet) 80 mg PO 2XD [facility] Temazepam (Temazepam 15 Mg Capsule) 15 mg PO QHS [facility] fluticasone propionate 50 mcg/actuation nasal spray,suspension (24 Hour Allergy Relief) 2 spray intranasal DAILY 04/08/23 [History Confirmed 08/02/24] polyethylene glycol 3350 17 gram oral powder packet 17 g PO QPM 04/08/23 [History Confirmed 08/02/24] ibandronate 150 mg tablet 150 mg PO MONTHLY #6 tabs 03/23/24 [Rx Confirmed 08/02/24] metformin 500 mg tablet See Rx Instructions .Route .COMPLEX #180 tabs 04/20/24 [Rx Confirmed 08/02/24] potassium chloride 10 mEq tablet,extended release 10 meq PO QDAY #30 tabs 04/20/24 [Rx Confirmed 08/02/24] temazepam 15 mg capsule 15 mg PO QHS sleep #30 caps 06/06/24 [Rx Confirmed 08/02/24] atorvastatin 20 mg tablet 20 mg PO DAILY #90 tabs 06/21/24 [Rx Confirmed 08/02/24] amlodipine 10 mg tablet 10 mg PO DAILY #90 tabs 06/26/24 [Rx Confirmed 08/02/24] apixaban 5 mg tablet (Eliquis) 5 mg PO 2XD #180 tabs 06/26/24 [Rx Confirmed 08/02/24] aspirin 81 mg tablet,delayed release 81 mg PO DAILY #90 ea 06/26/24 [Rx C onfirmed 08/02/24] sotalol 80 mg tablet 80 mg PO 2XD #180 tabs 06/26/24 [Rx Confirmed 08/02/24] atorvastatin 10 mg tablet 10 mg PO DAILY 08/02/24 [History Confirmed 08/02/24] furosemide 20 mg tablet 10 mg PO DAILY 08/02/24 [History Confirmed 08/02/24] lisinopril 10 mg tablet 10 mg PO DAILY 08/02/24 [History Confirmed 08/02/24] potassium chloride 10 mEq tablet,extended release(part/cryst) 10 meq PO DAILY 08/02/24 [History Confirmed 08/02/24] Opioid Naive vs. Tolerant Does Patient Take Opioids?: No Is Patient Opioid Naive?: Yes What is Opioid Naive?: *Opioid Naive implies the patient is not already taking opioids or not chronically receiving opioids on a daily basis. *PRN dosing is not "usually" associated with tolerance. *Patients are at higher risk of over-sedation and aspiration. Is Patient Opioid Tolerant?: No What is Opioid Tolerant?: *Opioid Tolerance implies less than the expected response to an opioid. *Acquired tolerance is defined by the patient taking 60mg of oral morphine daily (or equianalgesic dose of another opioid) for 1 week or more. *Often associated with chronic pain. *May take more than usual dose to achieve desired pain control. Review of Systems Constitutional: Reports Weakness and Loss of appetite; Denies Fever Head: Reports Normocephalic and Atraumatic Nose: Reports Congestion Throat: Reports Sore Throat and Difficulty Swallowing Cardiovascular: Denies Chest pain, Chest Pressure or Edema Respiratory: Reports Cough; Denies Shortness of air Gastrointestinal: Denies Nausea, Vomiting, Diarrhea, Abdominal pain or Melena Genitourinary: Denies Dysuria or Frequency Neurological: Reports Weakness; Denies Headache Physical examination Most Recent Vital Signs: Most Recent Vital Signs Temperature 98.0 F 08/02/24 08:06 Temperature Source Infrared 08/02/24 08:06 Pulse Rate 78 08/02/24 08:06 Respiratory Rate 20 08/02/24 08:06 Blood Pressure 135/69 08/02/24 08:06 O2 Sat by Pulse Oximetry 100 08/02/24 08:06 Height 5 ft 1 in 08/02/24 08:06 Weight 58.1 kg 08/02/24 08:06 Telemetry Heart Rate 60 04/12/23 01:00 Appearance: Positive No Apparent Distress and Alert and Oriented x3 Skin: Positive [place] and Warm; Negative Rashes HEENT: Positive Normocephalic and Atraumatic; Negative Oral Mucous Moist Neck: Positive Supple, Non-Tender Thyroid and Midline Trachea; Negative Adenopathy Chest/Lungs: Positive Clear to Auscultation Bilaterally; Negative Rales, Rhonci or Wheezes Heart: Positive RRR GI/: Positive Soft, Nontender, Bowel Sounds Normal and No Distention Extremities: Negative Edema Neurological: Positive Cranial Nerves Intact, Alert, Oriented and Other (+genera lized weakness ) Psychiatric: Positive Oriented x4, Appropriate Mood and Appropriate Affect Labs This Visit Labs This Visit: Labs This Visit 08/02/24 08/02/24 08:20 08:45 WBC 8.09 RBC 4.26 Hgb 12.5 Hct 38.4 MCV 90.1 MCH 29.3 MCHC 32.6 RDW Coeff of [place] 13.7 Plt Count 262 Immature Gran % (Auto) 0.9 Neut % (Auto) 69.5 Lymph % (Auto) 22.7 [place] % (Auto) 6.4 Eos % (Auto) 0.4 Baso % (Auto) 0.1 Neut # (Auto) 5.6 Lymph # (Auto) 1.8 [place] # (Auto) 0.5 Eos # (Auto) 0.0 Baso # (Auto) 0.0 Immature Gran # (Auto) 0.1 Sodium 136.9 Potassium 4.63 Chloride 104.1 Carbon Dioxide 16.8 L Anion Gap 20.63 BUN 23.9 H Creatinine 0.87 Estimated GFR (MDRD) 61.00 BUN/Creatinine Ratio 27.47 Glucose 133.9 H Calcium 9.23 Total Bilirubin 0.76 AST 29.2 ALT 15.3 Alkaline Phosphatase 74.1 Total Protein 6.59 Albumin 3.90 Globulin 2.69 Albumin/Globulin Ratio 1.44 Influ A Molecular Assay Negative by naat Influ B Molecular Assay Negative by naat SARS CoV-2 RNA Rapid TOM Positive H Microbiology This Visit 08/02/24 08:20 Throat Group A Strep Molecular Assay - Final Imaging Imaging: EXAM: CHEST, SINGLE VIEW HISTORY: Chest pain and shortness of breath COMPARISON: None. IMPRESSION: Cardiomediastinal countours appear within normal limits. Left- sided pacer device in place.. There is no focal pulmonary consolidation. No pleural effusion or pneumothorax. Mild bilateral peribronchial thickening. Bronchiolitis not excluded. Review Statement Review Statement: I have independently reviewed and interpreted the labs/EKGs/imaging that were ordered by the ER provider. I have reviewed all outside records that are available currently in our EMR including imaging/notes/labs from previous visits. Plan Plan: 1. ALFREDO, mild - Bicarb has dropped to 16 as well. LR at 75 ml/hr. Repeat labs in am. 2. Covid - isolation. Declines remdesivir. Not a great candidate for paxlovid with anticoagulation use. Conservative measures. 3. Sore throat - choraseptic spray, will also add on pepcid and protonix. 4. Hypertension - Cont home meds 5. A fib - Cont home meds 6. Hyperlipidemia- Cont home meds DVT Prophylaxis: eliquis Time Spent: Greater than 80 minutes spent with patient, 50% of the time spent with this patient was devoted to counseling and coordination of care. [facility] minutes spent discussing advance care planning. Admit to: OBs Discussed Plan of Care with Dr. Handy Michael. Medications Medication Orders: Medications Ordered Category Date Time Status Acetaminophen [Tylenol] Meds 08/02/24 09:53 Active 650 mg PO Q4H PRN Fluticasone Propionate [Flonase] Meds 08/02/24 09:55 Active 2 spray SONAM DAILY Ipratropium/Albuterol Neb [Duoneb] Meds 08/02/24 09:55 Active 3 ml NEB RTQ6H PRN Ondansetron HCl/Pf [Zofran Sdv] Meds 08/02/24 09:53 Active 4 mg IVP Q6H PRN Phenol [Chloraseptic [place]] Meds 08/02/24 09:55 Active 1 spray MM Q2H PRN Ringers Lactated Solution [Lactated Ringers] 1,000 ml Meds 08/02/24 10:00 Active IV 75 mls/hr
[2024-08-02] MEDS: LACTATED RINGERS 1,000 ML IV SCH (10:05)
[2024-08-02 11:49] VITALS: BMI 23.8
[2024-08-02] MEDS: FLONASE NAS SCH (13:36)
[2024-08-02] MEDS: PROTONIX IVP SCH (13:36)
[2024-08-02] MEDS: PEPCID IVP SCH (13:36)
[2024-08-02] MEDS: RESTORIL PO SCH (20:09)
[2024-08-02] MEDS: ELIQUIS PO SCH (20:09)
[2024-08-02] MEDS: BETAPACE PO SCH (20:10)
[2024-08-03 05:11] LABS: BASOPHILS % (AUTO) 0.1 % (0.0-3.0); EOSINOPHILS # (AUTO) 0.1 K/ul (0.0-0.7); EOSINOPHILS % (AUTO) 0.8 % (0.0-7.0); HEMATOCRIT 38.2 % (37.0-47.0); HEMOGLOBIN 12.6 g/dl (12.0-16.0); IMMATURE GRANULOCYTE # (AUTO) 0.1 (0.0-1.0); IMMATURE GRANULOCYTE % (AUTO) 0.8 % (0.0-5.0); LYMPHOCYTES # (AUTO) 1.8 K/uL (0.60-3.4); LYMPHOCYTES % (AUTO) 25.5 (10.0-50.0); MONOCYTES # (AUTO) 0.6 K/uL (0.4-2.0); MONOCYTES % (AUTO) 7.6 (0-10); NEUTROPHILS # (AUTO) 4.7 K/ul (2.0-6.9); NEUTROPHILS % (AUTO) 65.2 % (42.2-75.2); PLATELET COUNT 278 10^3/uL (140-440); RDW COEFFICIENT OF VARIATION 13.3 % (11.6-14.8); RED BLOOD COUNT 4.34 10^6/ul (4.20-5.40); WHITE BLOOD COUNT 7.22 K/ul (4.6-10.2)
[2024-08-03 05:23] LABS: ALANINE AMINOTRANSFERASE 13.9 U/L (0-35); ALBUMIN 3.75 g/dL (3.5-5.0); ALKALINE PHOSPHATASE 74.9 U/L (53-141); ASPARTATE AMINO TRANSFERASE 26.6 U/L (14-36); BILIRUBIN,TOTAL 0.68 mg/dL (0.2-1.3); BLOOD UREA NITROGEN 13.4 mg/dL (7-17); CALCIUM 8.94 mg/dL (8.4-10.2); CARBON DIOXIDE 18.3 mmol/L (22-30.0); CHLORIDE 103.1 mmol/L (98-107); CREATININE 0.59 mg/dL (0.60-1.30); GLUCOSE 144.1 mg/dL (74-106); POTASSIUM 4.09 mmol/L (3.5-5.1); SODIUM 134.5 mmol/L (134.5-145); TOTAL PROTEIN 6.33 g/dL (6.3-8.2)
[2024-08-03] MEDS: NORVASC PO SCH (08:08)
[2024-08-03] MEDS: ZESTRIL PO SCH (08:08)
[2024-08-03] MEDS: LIPITOR PO SCH (08:09)
[2024-08-03] MEDS: ASPIRIN EC PO SCH (08:09)
[2024-08-03 11:05] LABS: BILIRUBIN,URINE Negative (NEGATIVE); CLARITY,URINE Clear (CLEAR); COLOR,URINE Yellow (YELLOW); GLUCOSE, URINE (UA) Trace (NEGATIVE); KETONES,URINE 4+ (NEGATIVE); LEUKOCYTE ESTERASE ,URINE Trace (NEGATIVE); NITRITE,URINE Negative (NEGATIVE); PH,URINE 5.5 (5-9); PROTEIN,URINE Negative (NEGATIVE); URINE, BLOOD Trace-lysed (NEGATIVE); UROBILINOGEN,URINE 0.2 (0.2)
[2024-08-03 11:10] LABS: URINE WBC, MICROSCOPIC 20-30 (0-2)
--- NOTE | 2024-08-03 11:42 | PCM.PROG ---
Date/Time Seen Date Seen by Provider: 08/03/24 Time Seen by Provider: 08:50 Provider Provider[facility] Chief Complaint Chief Complaint: ALFREDO,DEHYDRATION,COVID+ Subjective Subjective: Patient has been very confused today. Difficult to reorient. Overall doesn't feel well. Objective Appearance: Positive No Apparent Distress and Other (+alert but very confused ) Chest/Lungs: Positive Clear to Auscultation Bilaterally; Negative Rales, Rhonci or Wheezes Heart: Positive RRR GI/: Positive Soft, Nontender, Bowel Sounds Normal and No Distention Neurological: Positive Cranial Nerves Intact, Alert, Disorinted and Other (+generalized weakness ) Vital Signs Vital Signs: Vital Signs: Last 24 Hours 08/02/24 11:55 08/02/24 12:50 08/02/24 13:00 Temperature Temperature Source Pulse Rate Respiratory Rate Blood Pressure Blood Pressure Mean Blood Pressure Location Blood Pressure Position O2 Sat by Pulse Oximetry Oxygen Delivery Method Room Air Room Air Telemetry Type Bedside Monitor Telemetry Monitoring Continues Irregular Telemetry Rate (Approximate) 60-70 BPM Telemetry Heart Rate 60 Telemetry SPO2 EKG NE Interval 0.16 EKG QRS Interval 0.08 Telemetry Strip Reading paced 08/02/24 14:00 08/02/24 14:00 08/02/24 15:00 Temperature 97.4 F L Temperature Source Temporal Artery Scan Pulse Rate 60 Respiratory Rate 16 Blood Pressure 125/53 L Blood Pressure Mean 77 Blood Pressure Location Left Arm Blood Pressure Position O2 Sat by Pulse Oximetry 99 Oxygen Delivery Method Room Air Room Air Room Air Telemetry Type Telemetry Monitoring Irregular Telemetry Rate (Approximate) Telemetry Heart Rate Telemetry SPO2 EKG NE Interval EKG QRS Interval Telemetry Strip Reading 08/02/24 16:00 08/02/24 17:00 08/02/24 17:38 Temperature Temperature Source Pulse Rate Respiratory Rate Blood Pressure Blood Pressure Mean Blood Pressure Location Blood Pressure Position O2 Sat by Pulse Oximetry Oxygen Delivery Method Room Air Room Air Room Air Telemetry Type Telemetry Monitoring Irregular Telemetry Rate (Approximate) Telemetry Heart Rate Telemetry SPO2 EKG NE Interval EKG QRS Interval Telemetry Strip Reading 08/02/24 17:38 08/02/24 19:00 08/02/24 19:00 Temperature 97.4 F L Temperature Source Temporal Artery Scan Pulse Rate 70 Respiratory Rate 19 Blood Pressure 146/62 H Blood Pressure Mean 90 Blood Pressure Location Left Arm Blood Pressure Position O2 Sat by Pulse Oximetry 98 Oxygen Delivery Method Room Air Room Air Telemetry Type Bedside Monitor Telemetry Monitoring Continues Irregular Telemetry Rate (Approximate) Telemetry Heart Rate 66 Telemetry SPO2 97 EKG NE Interval EKG QRS Interval 0.06 Telemetry Strip Reading PACED 08/02/24 20:00 08/02/24 20:00 08/02/24 21:00 Temperature Temperature Source Pulse Rate Respiratory Rate Blood Pressure Blood Pressure Mean Blood Pressure Location Blood Pressure Position O2 Sat by Pulse Oximetry Oxygen Delivery Method Room Air Room Air Room Air Telemetry Type Telemetry Monitoring Irregular Telemetry Rate (Approximate) Telemetry Heart Rate Telemetry SPO2 EKG NE Interval EKG QRS Interval Telemetry Strip Reading 08/02/24 21:12 08/02/24 22:00 08/02/24 23:00 Temperature 98.2 F Temperature Source Temporal Artery Scan Pulse Rate 67 Respiratory Rate 9 L Blood Pressure 124/50 L Blood Pressure Mean 74 Blood Pressure Location Right Arm Blood Pressure Position Supine O2 Sat by Pulse Oximetry 98 Oxygen Delivery Method Room Air Room Air Room Air Telemetry Type Telemetry Monitoring Irregular Telemetry Rate (Approximate) Telemetry Heart Rate Telemetry SPO2 EKG NE Interval EKG QRS Interval Telemetry Strip Reading 08/03/24 00:00 08/03/24 00:54 08/03/24 00:54 Temperature Temperature Source Pulse Rate Respiratory Rate Blood Pressure Blood Pressure Mean Blood Pressure Location Blood Pressure Position O2 Sat by Pulse Oximetry Oxygen Delivery Method Room Air Room Air Telemetry Type Bedside Monitor Telemetry Monitoring Continues Irregular Telemetry Rate (Approximate) Telemetry Heart Rate 71 Telemetry SPO2 98 EKG NE Interval EKG QRS Interval 0.05 L Telemetry Strip Reading PACED 08/03/24 02:00 08/03/24 02:00 08/03/24 03:00 Temperature 98.5 F Temperature Source Temporal Artery Scan Pulse Rate 65 Respiratory Rate 17 Blood Pressure 135/60 Blood Pressure Mean 85 Blood Pressure Location Left Arm Blood Pressure Position Supine O2 Sat by Pulse Oximetry 95 Oxygen Delivery Method Room Air Room Air Room Air Telemetry Type Telemetry Monitoring Irregular Telemetry Rate (Approximate) Telemetry Heart Rate Telemetry SPO2 EKG NE Interval EKG QRS Interval Telemetry Strip Reading 08/03/24 04:00 08/03/24 05:00 08/03/24 05:17 Temperature 97.9 F Temperature Source Temporal Artery Scan Pulse Rate 66 Respiratory Rate 18 Blood Pressure 164/70 H Blood Pressure Mean 101 Blood Pressure Location Right Arm Blood Pressure Position Supine O2 Sat by Pulse Oximetry 97 Oxygen Delivery Method Room Air Room Air Room Air Telemetry Type Telemetry Monitoring Irregular Telemetry Rate (Approximate) Telemetry Heart Rate Telemetry SPO2 EKG NE Interval EKG QRS Interval Telemetry Strip Reading 08/03/24 06:00 08/03/24 07:00 08/03/24 07:00 Temperature Temperature Source Pulse Rate Respiratory Rate Blood Pressure Blood Pressure Mean Blood Pressure Location Blood Pressure Position O2 Sat by Pulse Oximetry Oxygen Delivery Method Room Air Room Air Telemetry Type Bedside Monitor Telemetry Monitoring Continues Irregular Telemetry Rate (Approximate) 60-70 BPM Telemetry Heart Rate 69 Telemetry SPO2 EKG NE Interval EKG QRS Interval 0.09 Telemetry Strip Reading Atrial paced 08/03/24 08:00 08/03/24 08:53 08/03/24 09:44 Temperature 97.0 F L Temperature Source Temporal Artery Scan Pulse Rate 72 Respiratory Rate 18 Blood Pressure 146/74 H Blood Pressure Mean 98 Blood Pressure Location Left Arm Blood Pressure Position O2 Sat by Pulse Oximetry 97 Oxygen Delivery Method Room Air Room Air Room Air Telemetry Type Telemetry Monitoring Irregular Telemetry Rate (Approximate) Telemetry Heart Rate Telemetry SPO2 EKG NE Interval EKG QRS Interval Telemetry Strip Reading 08/03/24 10:00 08/03/24 11:00 Temperature Temperature Source Pulse Rate Respiratory Rate Blood Pressure Blood Pressure Mean Blood Pressure Location Blood Pressure Position O2 Sat by Pulse Oximetry Oxygen Delivery Method Room Air Room Air Telemetry Type Telemetry Monitoring Irregular Telemetry Rate (Approximate) Telemetry Heart Rate Telemetry SPO2 EKG NE Interval EKG QRS Interval Telemetry Strip Reading Lab Results Lab Results: Lab Results: Last 24 Hours 08/03/24 08/03/24 10:35 05:06 WBC 7.22 RBC 4.34 Hgb 12.6 Hct 38.2 MCV 88.0 MCH 29.0 MCHC 33.0 RDW Coeff of [place] 13.3 Plt Count 278 Immature Gran % (Auto) 0.8 Neut % (Auto) 65.2 Lymph % (Auto) 25.5 [place] % (Auto) 7.6 Eos % (Auto) 0.8 Baso % (Auto) 0.1 Neut # (Auto) 4.7 Lymph # (Auto) 1.8 [place] # (Auto) 0.6 Eos # (Auto) 0.1 Baso # (Auto) 0.0 Immature Gran # (Auto) 0.1 Sodium 134.5 Potassium 4.09 Chloride 103.1 Carbon Dioxide 18.3 L Anion Gap 17.19 BUN 13.4 Creatinine 0.59 L Estimated GFR (MDRD) 96.00 BUN/Creatinine Ratio 22.71 Glucose 144.1 H Calcium 8.94 Total Bilirubin 0.68 AST 26.6 ALT 13.9 Alkaline Phosphatase 74.9 Total Protein 6.33 Albumin 3.75 Globulin 2.58 Albumin/Globulin Ratio 1.45 Urine Color Yellow Urine Clarity Clear Urine pH 5.5 Ur Specific [place] 1.015 Urine Protein Negative Urine Glucose (UA) Trace H Urine Ketones 4+ Urine Blood Trace-lysed Urine Nitrite Negative Urine Bilirubin Negative Urine Urobilinogen 0.2 Ur Leukocyte Esterase Trace H Urine Microscopic RBC 5-10 Urine Microscopic WBC 20-30 Ur Squamous Epith Cells 5-10 Additional Comments Additional Comments: I have independently reviewed and interpreted the labs/EKGs/imaging ordered during this hospital stay. I have reviewed outside records that are available in our EMR that pertain to medical stay including imaging/notes/labs from previous visits. Active Medications Active Medications: Medications Generic Name Dose Route Start Last Admin Trade Name Freq PRN Reason Stop Dose Admin Acetaminophen 650 mg 08/02/24 09:53 Acetaminophen 325 Mg Tablet PO Q4H PRN Mild Pain Albuterol/Ipratropium 3 ml 08/02/24 09:55 Ipratropium/Albuterol Vial.Neb NEB RTQ6H PRN Wheezing Amlodipine Besylate 10 mg 08/03/24 09:00 08/03/24 08:08 Amlodipine Besylate 5 Mg Tablet PO 10 mg DAILY HANNAH Administration Apixaban 5 mg 08/02/24 21:00 08/03/24 08:10 Apixaban 5 Mg Tab PO 5 mg 2XD HANNAH Administration Aspirin 81 mg 08/03/24 09:00 08/03/24 08:09 Aspirin 81 Mg Tablet. PO 81 mg DAILYWM2 HANNAH Administration Atorvastatin Calcium 20 mg 08/03/24 09:00 08/03/24 08:09 Atorvastatin Calcium 20 Mg Tablet PO 20 mg DAILY HANNAH Administration Famotidine 20 mg 08/02/24 12:30 08/03/24 08:08 Famotidine Inj 20 Mg/2 Ml Vial IVP 20 mg Q12HR HANNAH Administration Fluticasone Propionate 2 spray 08/02/24 09:55 08/03/24 08:09 Fluticasone Propionate 16 Gm Nasal [place] SONAM 2 spray DAILY HANNAH Administration Lactated Ringer's 1,000 mls @ 75 mls/hr 08/02/24 10:00 08/02/24 23:53 Lactated Ringers IV 75 mls/hr .[id number] HANNAH Administration CEFTRIAXONE/D5W 1 GM PREMIX 1 gm in 50 mls @ 100 mls/hr 08/03/24 11:25 Rocephin 1 Gm/50 Ml D5w IV 08/06/24 11:24 DAILY HANNAH Lisinopril 10 mg 08/03/24 09:00 08/03/24 08:08 Lisinopril 10 Mg Tablet PO 10 mg DAILY HANNAH Administration Ondansetron HCl 4 mg 08/02/24 09:53 Ondansetron Hcl/Pf 4 Mg/2 Ml Sdv IVP Q6H PRN Nausea / Vomiting Pantoprazole Sodium 40 mg 08/02/24 12:05 08/03/24 08:08 Pantoprazole Sodium 40 Mg Vial IVP 40 mg DAILY HANNAH Administration Phenol/Menthol 1 spray 08/02/24 09:55 Phenol 1 [place] Btl MM Q2H PRN SORE THROAT Sotalol HCl 80 mg 08/02/24 21:00 08/03/24 08:09 Sotalol Hcl 80 Mg Tablet PO 80 mg 2XD HANNAH Administration Temazepam 15 mg 08/02/24 21:00 08/02/24 20:09 Temazepam 15 Mg Capsule PO 15 mg BEDTIME HANNAH Administration Plan Plan: 1. ALFREDO, mild - Bicarb slowly improving. LR at 75 ml/hr. Repeat labs in am. 2. Covid - isolation. Declines remdesivir. Not a great candidate for paxlovid with anticoagulation use. Conservative measures. 3. Acute metabolic encephalopathy in setting of suspect UTI - delirium due to hospitalization also on differential but will treat with rocephin due to possible UTI. UC pending. 3. Sore throat - choraseptic spray, pepcid and protonix. 4. Hypertension - Cont home meds 5. A fib - Cont home meds 6. Hyperlipidemia- Cont home meds Dispo: made inpatient today DVT: Eliquis Review Statement Review Statement: I have personally discussed and reviewed the patient's visit/currently labs/imaging/decision making with Dr. Corona, my supervising attending. Greater that 50 minutes spent with patient, 50% of the time spent with this patient was devoted to counseling and coordination of care.
[2024-08-03] MEDS: ROCEPHIN 1 GM/50 ML D5W 1 GM/50 ML BAG IV SCH (12:03)
[2024-08-04 06:15] LABS: ALANINE AMINOTRANSFERASE 14.1 U/L (0-35); ALBUMIN 3.39 g/dL (3.5-5.0); ALKALINE PHOSPHATASE 68.4 U/L (53-141); ASPARTATE AMINO TRANSFERASE 27.9 U/L (14-36); BILIRUBIN,TOTAL 0.47 mg/dL (0.2-1.3); BLOOD UREA NITROGEN 6.7 mg/dL (7-17); CALCIUM 8.64 mg/dL (8.4-10.2); CARBON DIOXIDE 23.1 mmol/L (22-30.0); CHLORIDE 105.1 mmol/L (98-107); CREATININE 0.49 mg/dL (0.60-1.30); GLUCOSE 179.8 mg/dL (74-106); POTASSIUM 3.38 mmol/L (3.5-5.1); SODIUM 135.3 mmol/L (134.5-145); TOTAL PROTEIN 6.01 g/dL (6.3-8.2)
[2024-08-04 06:25] LABS: BASOPHILS % (AUTO) 0.1 % (0.0-3.0); EOSINOPHILS # (AUTO) 0.1 K/ul (0.0-0.7); EOSINOPHILS % (AUTO) 0.8 % (0.0-7.0); HEMATOCRIT 36.1 % (37.0-47.0); HEMOGLOBIN 12.4 g/dl (12.0-16.0); IMMATURE GRANULOCYTE # (AUTO) 0.1 (0.0-1.0); IMMATURE GRANULOCYTE % (AUTO) 0.6 % (0.0-5.0); LYMPHOCYTES # (AUTO) 1.6 K/uL (0.60-3.4); LYMPHOCYTES % (AUTO) 18.4 (10.0-50.0); MEAN CORPUSCULAR HEMOGLOBIN 29.2 pg (27.0-31.0); MEAN CORPUSCULAR HGB CONC 34.3 (31.8-35.4); MEAN CORPUSCULAR VOLUME 85.1 fl (81.0-99.0); MONOCYTES # (AUTO) 0.8 K/uL (0.4-2.0); MONOCYTES % (AUTO) 8.8 (0-10); NEUTROPHILS # (AUTO) 6.1 K/ul (2.0-6.9); NEUTROPHILS % (AUTO) 71.3 % (42.2-75.2); PLATELET COUNT 285 10^3/uL (140-440); RDW COEFFICIENT OF VARIATION 13.2 % (11.6-14.8); RED BLOOD COUNT 4.24 10^6/ul (4.20-5.40); WHITE BLOOD COUNT 8.53 K/ul (4.6-10.2)
[2024-08-04] MEDS: K-DUR PO ONE (08:56)
[2024-08-04] MEDS: ROCEPHIN 1 GM VIAL IM ONE ×2 (09:02→09:48)
[2024-08-04] MEDS: LIDOCAINE 1% 5 ML SDV IM ONE ×2 (09:02→09:47)
--- NOTE | 2024-08-04 14:57 | PCM.PROG ---
Date/Time Seen Date Seen by Provider: 08/04/24 Time Seen by Provider: 08:30 Provider Provider: MANPREET NAVARRO [facility]C, [facility] Chief Complaint Chief Complaint: ALFREDO,DEHYDRATION,COVID+ Subjective Subjective: Patient continues to be very confused today. Lives at home alone. Did not sleep at all last night and is now sleeping soundly this morning. Objective Appearance: Positive No Apparent Distress Chest/Lungs: Positive Clear to Auscultation Bilaterally; Negative Rales, Rhonci or Wheezes Heart: Positive RRR GI/: Positive Soft, Nontender, Bowel Sounds Normal and No Distention Neurological: Positive Cranial Nerves Intact, Alert, Disorinted and Other (+generalized weakness ) Vital Signs Vital Signs: Vital Signs: Last 24 Hours 08/03/24 17:57 08/03/24 19:00 08/03/24 20:00 Temperature 98.0 F Temperature Source Axillary Pulse Rate 76 Respiratory Rate 17 Blood Pressure 136/63 Blood Pressure Mean 87 Blood Pressure Location Left Arm Blood Pressure Position O2 Sat by Pulse Oximetry 98 Oxygen Delivery Method Room Air Room Air Telemetry Type Bedside Monitor Telemetry Monitoring Continues Irregular Telemetry Rate (Approximate) 70-80 BPM Telemetry Heart Rate EKG QRS Interval 0.06 Telemetry Strip Reading PACED 08/03/24 21:01 08/04/24 01:00 08/04/24 02:00 Temperature 98 F Temperature Source Temporal Artery Scan Pulse Rate 84 73 Respiratory Rate 19 17 Blood Pressure 162/89 H Blood Pressure Mean 113 Blood Pressure Location Left Arm Blood Pressure Position Supine O2 Sat by Pulse Oximetry 95 Oxygen Delivery Method Room Air Room Air Telemetry Type Bedside Monitor Telemetry Monitoring Continues Irregular Telemetry Rate (Approximate) Telemetry Heart Rate 69 EKG QRS Interval 0.06 Telemetry Strip Reading PACED 08/04/24 05:55 08/04/24 07:00 08/04/24 08:00 Temperature 98 F Temperature Source Temporal Artery Scan Pulse Rate 75 Respiratory Rate 16 Blood Pressure 142/70 H Blood Pressure Mean 94 Blood Pressure Location Left Arm Blood Pressure Position Supine O2 Sat by Pulse Oximetry 96 Oxygen Delivery Method Room Air Room Air Telemetry Type Bedside Monitor Telemetry Monitoring Continues Irregular Telemetry Rate (Approximate) Telemetry Heart Rate 62 EKG QRS Interval 0.08 Telemetry Strip Reading A PACED 08/04/24 14:00 Temperature 98.4 F Temperature Source Axillary Pulse Rate 75 Respiratory Rate 18 Blood Pressure 149/71 H Blood Pressure Mean 97 Blood Pressure Location Right Radial Artery Blood Pressure Position Sitting O2 Sat by Pulse Oximetry 97 Oxygen Delivery Method Room Air Telemetry Type Telemetry Monitoring Irregular Telemetry Rate (Approximate) Telemetry Heart Rate EKG QRS Interval Telemetry Strip Reading Lab Results Lab Results: Lab Results: Last 24 Hours 08/04/24 05:53 WBC 8.53 RBC 4.24 Hgb 12.4 Hct 36.1 L MCV 85.1 MCH 29.2 MCHC 34.3 RDW Coeff of [place] 13.2 Plt Count 285 Immature Gran % (Auto) 0.6 Neut % (Auto) 71.3 Lymph % (Auto) 18.4 [place] % (Auto) 8.8 Eos % (Auto) 0.8 Baso % (Auto) 0.1 Neut # (Auto) 6.1 Lymph # (Auto) 1.6 [place] # (Auto) 0.8 Eos # (Auto) 0.1 Baso # (Auto) 0.0 Immature Gran # (Auto) 0.1 Sodium 135.3 Potassium 3.38 L Chloride 105.1 Carbon Dioxide 23.1 Anion Gap 10.48 BUN 6.7 L Creatinine 0.49 L Estimated GFR (MDRD) 119.00 BUN/Creatinine Ratio 13.67 Glucose 179.8 H Calcium 8.64 Total Bilirubin 0.47 AST 27.9 ALT 14.1 Alkaline Phosphatase 68.4 Total Protein 6.01 L Albumin 3.39 L Globulin 2.62 Albumin/Globulin Ratio 1.29 Additional Comments Additional Comments: I have independently reviewed and interpreted the labs/EKGs/imaging ordered during this hospital stay. I have reviewed outside records that are available in our EMR that pertain to medical stay including imaging/notes/labs from previous visits. Active Medications Active Medications: Medications Generic Name Dose Route Start Last Admin Trade Name Freq PRN Reason Stop Dose Admin Acetaminophen 650 mg 08/02/24 09:53 Acetaminophen 325 Mg Tablet PO Q4H PRN Mild Pain Albuterol/Ipratropium 3 ml 08/02/24 09:55 Ipratropium/Albuterol Vial.Neb NEB RTQ6H PRN Wheezing Amlodipine Besylate 10 mg 08/03/24 09:00 08/04/24 08:55 Amlodipine Besylate 5 Mg Tablet PO 10 mg DAILY HANNAH Administration Apixaban 5 mg 08/02/24 21:00 08/04/24 08:55 Apixaban 5 Mg Tab PO 5 mg 2XD HANNAH Administration Aspirin 81 mg 08/03/24 09:00 08/04/24 08:55 Aspirin 81 Mg Tablet.Dr PO 81 mg DAILYWM2 HANNAH Administration Atorvastatin Calcium 20 mg 08/03/24 09:00 08/04/24 08:55 Atorvastatin Calcium 20 Mg Tablet PO 20 mg DAILY HANNAH Administration Famotidine 20 mg 08/02/24 12:30 08/04/24 08:51 Famotidine Inj 20 Mg/2 Ml Vial IVP Not Given Q12HR HANNAH Fluticasone Propionate 2 spray 08/02/24 09:55 08/04/24 08:55 Fluticasone Propionate 16 Gm Nasal [place] SONAM 2 spray DAILY HANNAH Administration Lactated Ringer's 1,000 mls @ 75 mls/hr 08/02/24 10:00 08/04/24 08:52 Lactated Ringers IV Not Given .[id number] HANNAH CEFTRIAXONE/D5W 1 GM PREMIX 1 gm in 50 mls @ 100 mls/hr 08/03/24 11:25 08/03/24 12:03 Rocephin 1 Gm/50 Ml D5w IV 08/06/24 11:24 100 mls/hr DAILY HANNAH Administration Lisinopril 10 mg 08/03/24 09:00 08/04/24 08:55 Lisinopril 10 Mg Tablet PO 10 mg DAILY HANNAH Administration Ondansetron HCl 4 mg 08/02/24 09:53 Ondansetron Hcl/Pf 4 Mg/2 Ml Sdv IVP Q6H PRN Nausea / Vomiting Pantoprazole Sodium 40 mg 08/02/24 12:05 08/04/24 09:50 Pantoprazole Sodium 40 Mg Vial IVP Not Given DAILY HANNAH Phenol/Menthol 1 spray 08/02/24 09:55 Phenol 1 [place] Btl MM Q2H PRN SORE THROAT Sotalol HCl 80 mg 08/02/24 21:00 08/04/24 08:56 Sotalol Hcl 80 Mg Tablet PO 80 mg 2XD HANNAH Administration Temazepam 15 mg 08/02/24 21:00 08/03/24 20:02 Temazepam 15 Mg Capsule PO 15 mg BEDTIME HANNAH Administration Plan Plan: 1. ALFREDO, mild - Resolved. Stop fluids. Repeat labs in am. 2. Covid - isolation. Declines remdesivir. Not a great candidate for paxlovid with anticoagulation use. Conservative measures. 3. Acute delirium - likely delirium due to hospitalization and covid. 4. Suspect uti - ruled out, urine culture with no growth, stop rocephin 5. Sore throat - chloraseptic spray, pepcid and protonix. 6. Hypertension - Cont home meds 7. A fib - Cont home meds 8. Hyperlipidemia- Cont home meds Dispo: Spoke with daughter María Elena who lives 5 miles away but checks in on her often. We discussed possible discharge tomorrow. She states they can stay with her for a few days to ensure she improves mentation [place]ry. DVT: [place] Review Statement Review Statement: I have personally discussed and reviewed the patient's visit/currently labs/imaging/decision making with Dr. Corona, my supervising attending. Greater that 50 minutes spent with patient, 50% of the time spent with this patient was devoted to counseling and coordination of care.
[2024-08-04] MEDS: ZYPREXA IM PRN (20:05)
[2024-08-05 05:22] VITALS: RESP 18
[2024-08-05 05:57] LABS: BASOPHILS % (AUTO) 0.3 % (0.0-3.0); EOSINOPHILS # (AUTO) 0.1 K/ul (0.0-0.7); EOSINOPHILS % (AUTO) 1.6 % (0.0-7.0); HEMATOCRIT 38.2 % (37.0-47.0); HEMOGLOBIN 12.7 g/dl (12.0-16.0); IMMATURE GRANULOCYTE # (AUTO) 0.1 (0.0-1.0); LYMPHOCYTES # (AUTO) 2.2 K/uL (0.60-3.4); LYMPHOCYTES % (AUTO) 33.4 (10.0-50.0); MEAN CORPUSCULAR HEMOGLOBIN 29.1 pg (27.0-31.0); MEAN CORPUSCULAR HGB CONC 33.2 (31.8-35.4); MEAN CORPUSCULAR VOLUME 87.6 fl (81.0-99.0); MONOCYTES # (AUTO) 0.5 K/uL (0.4-2.0); MONOCYTES % (AUTO) 8.1 (0-10); NEUTROPHILS # (AUTO) 3.7 K/ul (2.0-6.9); NEUTROPHILS % (AUTO) 55.6 % (42.2-75.2); PLATELET COUNT 325 10^3/uL (140-440); RDW COEFFICIENT OF VARIATION 13.8 % (11.6-14.8); RED BLOOD COUNT 4.36 10^6/ul (4.20-5.40); WHITE BLOOD COUNT 6.68 K/ul (4.6-10.2)
[2024-08-05 06:22] LABS: ALANINE AMINOTRANSFERASE 14.6 U/L (0-35); ALBUMIN 3.94 g/dL (3.5-5.0); ALKALINE PHOSPHATASE 76.1 U/L (53-141); ASPARTATE AMINO TRANSFERASE 28.6 U/L (14-36); BILIRUBIN,TOTAL 0.6 mg/dL (0.2-1.3); BLOOD UREA NITROGEN 6.7 mg/dL (7-17); CALCIUM 9.2 mg/dL (8.4-10.2); CARBON DIOXIDE 24.5 mmol/L (22-30.0); CHLORIDE 105.3 mmol/L (98-107); CREATININE 0.64 mg/dL (0.60-1.30); GLUCOSE 137.8 mg/dL (74-106); POTASSIUM 3.43 mmol/L (3.5-5.1); SODIUM 139.2 mmol/L (134.5-145); TOTAL PROTEIN 6.81 g/dL (6.3-8.2)
[2024-08-05] MEDS: DUONEB NEB PRN (09:07)
[2024-08-05] MEDS: K-DUR PO ONE (09:20)
[2024-08-05 09:46] VITALS: BP 120/62; PULSE 81; TEMP 96.8
--- NOTE | 2024-08-05 10:52 | DCSUM ---
Admission Date Admission Date: 08/02/24 Discharge Date Discharge Date: 08/05/24 Admission Diagnosis Admission Diagnosis: 1. ALFREDO, mild - Resolved. Stop fluids. Repeat labs in am. 2. Covid Discharge Diagnosis Discharge Diagnosis: 1. ALFREDO, mild - Resolved. 2. Covid 3. Acute delirium - improved 4. Suspect uti - ruled out 5. Hypertension - Cont home meds 6. A fib - Cont home meds 7. Hyperlipidemia- Cont home meds Hospital Provider Hospital Provider: MANPREET NAVARRO PA-C, [facility] Physician Primary Care Physician: ERICA MICHAEL MD Summary of History and Physical Summary of History and Physical: Patient is a 89 year old female with pmhx of hypertension, a fib on chronic anticoagulation, osteoporosis, hyperlipidemia, DMt2, pacemaker who presents for overall not feeling well. States she's had sore throat, fatigue, cough, and congestion for past 2 days. States her lower throat area hurts and it is diffic ult to swallow. Denies drooling or choking. Able to drink ok but states she's not been drinking much. In the ER she tested positive for covid. Labs unremarkable except bicarb of 16, elevated BUN, and mild ALFREDO compared to her baseline. She was admitted to [facility] for covid and ALFREDO. Discussed with patient option of remdesivir for treatment of covid. Paxlovid is not a great choice given her anticoagulation. Discussed risks and benefits. She opts to not get remdesivir. Hospital Course Subjective: Patient did well from a covid stanpoint. She has remained on RA. Her throat feels better. However after the first night she was very confused. Hospital delirium suspected. UA checked showing potential uti so rocephin was added, however culture came back no growth so antibiotics were stopped. She continued to be very confused. She was given low dose zyprexa on 08/04 evening and she finally got some rest through the night. She is improved today but still not at her baseline to be safe enough at home alone. Daughter María Elena states they can stay with her a few days to make sure she returns to her normal once back in her normal environment. They also need to be thinking about the future regarding safe living environment as she clearly has some underlying dementia. Assisted living may be a great choice if able. Appearance: No Apparent Distress, Alert and Other (+pleasantly confused today ) HEENT: MMM and Supple CVS: Other (RRR) Abdomen: Soft, Non-Tender and No Distention Respiratory: No Accessory Muscle Use Extremities: No Edema Vital Signs: Most Recent Vital Signs Temperature 96.8 F L 08/05/24 09:00 Temperature Source Axillary 08/05/24 09:00 Temperature Source Infrared 08/02/24 08:06 Pulse Rate 81 08/05/24 09:00 Respiratory Rate 18 08/05/24 09:00 Blood Pressure 120/62 08/05/24 09:00 Blood Pressure Mean 81 08/05/24 09:00 Blood Pressure Right Arm 132/54 08/02/24 10:47 Blood Pressure Location Left Arm 08/05/24 09:00 Blood Pressure Position Supine 08/05/24 09:00 O2 Sat by Pulse Oximetry 95 08/05/24 09:00 Oxygen Delivery Method Room Air 08/05/24 09:00 Height 5 ft 1 in 08/02/24 10:47 Weight 57.2 kg 08/02/24 10:47 Telemetry Type Bedside Monitor 08/05/24 09:54 Telemetry Monitoring Continues 08/05/24 09:54 Irregular Telemetry Rate (Approximate) 70-80 BPM 08/03/24 19:00 Telemetry Heart Rate 75 08/05/24 09:54 Telemetry SPO2 98 08/03/24 00:54 EKG NC Interval 0.16 08/02/24 13:00 EKG QRS Interval 0.09 08/05/24 09:54 Telemetry Strip Reading A- Paced 08/05/24 09:54 Imaging: EXAM: CHEST, SINGLE VIEW HISTORY: Chest pain and shortness of breath COMPARISON: None. IMPRESSION: Cardiomediastinal countours appear within normal limits. Left- sided pacer device in place.. There is no focal pulmonary consolidation. No pleural effusion or pneumothorax. Mild bilateral peribronchial thickening. Bronchiolitis not excluded. Lab Results Last 24 Hours: 08/05/24 05:48 WBC 6.68 RBC 4.36 Hgb 12.7 Hct 38.2 MCV 87.6 MCH 29.1 MCHC 33.2 RDW Coeff of [place] 13.8 Plt Count 325 Immature Gran % (Auto) 1.0 Neut % (Auto) 55.6 Lymph % (Auto) 33.4 [place] % (Auto) 8.1 Eos % (Auto) 1.6 Baso % (Auto) 0.3 Neut # (Auto) 3.7 Lymph # (Auto) 2.2 [place] # (Auto) 0.5 Eos # (Auto) 0.1 Baso # (Auto) 0.0 Immature Gran # (Auto) 0.1 Sodium 139.2 Potassium 3.43 L Chloride 105.3 Carbon Dioxide 24.5 Anion Gap 12.83 BUN 6.7 L Creatinine 0.64 Estimated GFR (MDRD) 87.00 BUN/Creatinine Ratio 10.46 Glucose 137.8 H Calcium 9.20 Total Bilirubin 0.60 AST 28.6 ALT 14.6 Alkaline Phosphatase 76.1 Total Protein 6.81 Albumin 3.94 Globulin 2.87 Albumin/Globulin Ratio 1.37 Discharge Instructions Discharge Planning: Discharge Planning > [address] Handy Michael Discharge Medications: Medications at Discharge (Home Meds & RX) fluticasone propionate 50 mcg/actuation nasal spray,suspension (24 Hour Allergy Relief) 2 spray intranasal DAILY 04/08/23 polyethylene glycol 3350 17 gram oral powder packet 17 g PO QPM 04/08/23 ibandronate 150 mg tablet 150 mg PO MONTHLY #6 tabs 03/23/24 metformin 500 mg tablet See Rx Instructions .Route .COMPLEX #180 tabs 04/20/24 potassium chloride 10 mEq tablet,extended release 10 meq PO QDAY #30 tabs 04/20/24 temazepam 15 mg capsule 15 mg PO QHS sleep #30 caps 06/06/24 atorvastatin 20 mg tablet 20 mg PO DAILY #90 tabs 06/21/24 amlodipine 10 mg tablet 10 mg PO DAILY #90 tabs 06/26/24 apixaban 5 mg tablet (Eliquis) 5 mg PO 2XD #180 tabs 06/26/24 aspirin 81 mg tablet,delayed release 81 mg PO DAILY #90 ea 06/26/24 sotalol 80 mg tablet 80 mg PO 2XD #180 tabs 06/26/24 furosemide 20 mg tablet 10 mg PO DAILY 08/02/24 lisinopril 10 mg tablet 10 mg PO DAILY 08/02/24 Discharge Plan Discharge Discharge Orders: Discharge Patient (ONCE); Ordered 08/05/24 Ordered By: MANPREET NAVARRO Activity Restrictions/Additional Instructions: DISCHARGE TO HOME DX: COVID ISOLATION PRECAUTIONS : Avoid being around others and/or wear an N95 mask if have to be around anyone, is no longer considered contagious on 08/08/24 RETURN WITH WORSENING SYMPTOMS RECOMMEND FAMILY STAY WITH HER FOR A COUPLE DAYS WHILE SHE IS CONFUSED. ENCOURAGE AND MONITOR FLUID INTAKE Instructions: Dehydration (DC), Acute Kidney Injury (DC), Droplet Precautions (GEN), COVID-19: Slow the Coronavirus Spread (DC) Patient Disposition: HOME SELF-CARE Prescriptions: Continued ibandronate 150 mg tablet 150 mg PO MONTHLY Qty: 6 0RF metformin 500 mg tablet See Rx Instructions .ROUTE .COMPLEX Qty: 180 1RF Dose Instruction: TAKE ONE TABLET TWICE DAILY Rx Instructions: TAKE ONE TABLET TWICE DAILY potassium chloride 10 mEq tablet extended release 10 meq PO QDAY Qty: 30 3RF temazepam 15 mg capsule 15 mg PO QHS Qty: 30 2RF atorvastatin 20 mg tablet 20 mg PO DAILY Qty: 90 1RF aspirin 81 mg tablet,delayed release (DR/EC) 81 mg PO DAILY Qty: 90 1RF sotalol 80 mg tablet 80 mg PO 2XD Qty: 180 1RF amlodipine 10 mg tablet 10 mg PO DAILY Qty: 90 1RF Eliquis 5 mg tablet 5 mg PO 2XD Qty: 180 1RF lisinopril 10 mg tablet 10 mg PO DAILY furosemide 20 mg tablet 10 mg PO DAILY fluticasone propionate [24 Hour Allergy Relief] 50 mcg/actuation spray,suspension 2 spray intranasal DAILY Rx Instructions: administer into each nostril polyethylene glycol 3350 17 gram powder in packet 17 g PO QPM Discontinued atorvastatin 10 mg tablet 10 mg PO DAILY potassium chloride 10 mEq tablet,ER particles/crystals 10 meq PO DAILY Did you review [place] [employer] for ALL controlled substances?: Not Applicable Discussed opioids are addictive and Narcan is available by prescription or from pharmacy.: No Condition: Stable Referrals: ERICA MICHAEL MD [Primary Care Provider] - 08/10/24 9:40 am
== END 2024-08-05 11:50 | disposition home or self-care (01) | DRG 178 ==
LOC: SCU 08:04 → ED 08:04 → SCU 10:15
PROVIDERS: ADMIT Hospitalist; ATTEND Physician Assistant